=== PATIENT | male | born 1970 | race Two or more races ===

== ENCOUNTER 2017-12-07 23:06 | Inpatient (IN) | payer OTHER ==
[~2017-12-07] VITALS: Ht 177.8 cm; Wt 99.6 kg
[2017-12-07] MEDS ORDERED: VANCOMYCIN 1GM/250ML 250 ML IV ONE (23:45)
[2017-12-07] MEDS ORDERED: KETOROLAC TROMETH 30 MG/ML 1ML VIAL IV ONE (23:45)
[2017-12-07] MEDS ORDERED: HYDROmorphone HCL 2 MG/ML VL IV ONE (23:45)
[2017-12-07] MEDS ORDERED: ONDANSETRON HCL 4 MG/2 ML VIAL IV ONE (23:45)
[2017-12-08 00:37] LABS: Basophils # (auto) 0.1 uL; Basophils % (auto) 0.3 % (0.0-2.0); Eosinophils # (auto) 0.1 uL; Eosinophils % (auto) 0.5 % (0.0-7.0); Hematocrit 41.7 % (41.0-53.0); Hemoglobin 13.9 g/dL (13.5-17.5); Lymphocytes # (auto) 1.6 uL; Lymphocytes % (auto) 7.5 % (10.0-50.0); Mean Corpuscular Hemoglobin 29.8 pg (28.0-32.0); Mean Corpuscular Hgb Conc. 33.3 g/dL (32.0-36.0); Mean Corpuscular Volume 89.6 fL (80.0-100.0); Monocytes # (auto) 1.5 uL; Neutrophils # (auto) 17.9 uL; Neutrophils % (auto) 84.7 % (37.0-80.0); Platelet Count (auto) 275 10^3/uL (140-450); Red Blood Cells 4.65 10^6/uL (4.5-5.90); Red Cell Distribution Width 13.5 % (11.8-14.3); White Blood Cell 21.1 10^3/uL (4.4-10.8)
[2017-12-08 00:50] LABS: INR 0.96 (0.9-1.15); Partial Thromboplastin Time 32.2 sec (23.78-33.04); Prothrombin Time 10.3 sec (9.27-12.13)
[2017-12-08 00:51] LABS: Alanine Aminotransferase 102 U/L (16-61); Albumin 2.6 g/dL (3.4-5.0); Anion Gap 12 (5-15); Aspartate Aminotransferase 58 U/L (15-37); BUN/Creatinine Ratio 13.1; Blood Urea Nitrogen 18 mg/dL (7-18); Calcium 7.7 mg/dL (8.5-10.1); Carbon Dioxide 22 mmol/L (21-32); Chloride 98 mmol/L (98-107); GFR African American 72 mL/min; GFR Non-African American 60 mL/min; Glucose 215 mg/dL (74-106); Magnesium 1.6 mg/dL (1.6-2.6); Potassium 3.8 mmol/L (3.5-5.1); Sodium 132 mmol/L (136-145)
[2017-12-08 00:56] LABS: Alkaline Phosphatase 158 U/L (45-117); Bilirubin, Total 0.7 mg/dL (0.2-1.0); Total Protein 7.1 g/dL (6.4-8.2)
[2017-12-08] MEDS: SODIUM CHLORIDE 0.9% 1,000 ML IV ONE ×2 (01:15→01:52)
[2017-12-08] MEDS ORDERED: InsuLIN REG 1unit/0.01ml Soln (100units/ml) IV ONE (01:15)
[2017-12-08] MEDS ORDERED: VANCOMYCIN PER PHARMACY 0 MG IV SCH (03:30)
[2017-12-08] MEDS ORDERED: DEXTROSE (50%) 50ML SYRG IV PRN (03:30)
[2017-12-08] MEDS: PIPERACILLIN-TAZOB 3.375GM 100 ML IV SCH ×3 (06:49→20:14)
[2017-12-08] MEDS: ACCU-CHEK COMFORT CURVE STRIP VI SCH ×4 (06:49→22:26)
[2017-12-08] MEDS: InsuLIN REG 1unit/0.01ml Soln (100units/ml) SC SCH ×4 (07:45→22:45)
[2017-12-08] MEDS: MEPERIDINE HCL (25 MG/ML) 1ML VIAL IV PRN ×3 (08:55→20:14)
[2017-12-08] MEDS: VANCOMYCIN 1GM/250ML 250 ML IV SCH ×2 (10:00→18:21)
[2017-12-08] MEDS ORDERED: DOCUSATE SOD 100 MG CAP PO PRN (10:00)
[2017-12-08] MEDS: FAMOTIDINE 20 MG TAB PO SCH ×2 (10:00→22:45)
[2017-12-08] MEDS ORDERED: AMLO5TAB13 PO (17:55)
[2017-12-08] MEDS ORDERED: ASPI-123 PO (17:55)
[2017-12-08] MEDS ORDERED: DULO60CA PO (17:55)
[2017-12-08] MEDS ORDERED: IBUP800T24 PO (17:55)
[2017-12-08] MEDS ORDERED: INSU70IN3 SC (17:55)
[2017-12-08] MEDS ORDERED: ATOR40TA52 PO (17:55)
[2017-12-08] MEDS: HYDROcodone-ACET 5/325MG TAB PO PRN (18:10)
[2017-12-08 21:51] VITALS: BP 111/53
[2017-12-09] MEDS: PIPERACILLIN-TAZOB 3.375GM 100 ML IV SCH ×4 (01:18→19:30)
[2017-12-09] MEDS: VANCOMYCIN 1GM/250ML 250 ML IV SCH ×3 (02:27→18:01)
[2017-12-09 05:06] VITALS: BP 103/56
[2017-12-09] MEDS: ACCU-CHEK COMFORT CURVE STRIP VI SCH ×4 (06:47→22:00)
[2017-12-09] MEDS: InsuLIN REG 1unit/0.01ml Soln (100units/ml) SC SCH ×4 (06:57→22:00)
[2017-12-09] MEDS: MEPERIDINE HCL (25 MG/ML) 1ML VIAL IV PRN ×2 (06:58→11:22)
[2017-12-09] MEDS ORDERED: LISI10TA6 PO (07:24)
[2017-12-09] MEDS ORDERED: METF-371 PO (07:24)
[2017-12-09] MEDS ORDERED: TIMO0.5S38 EACHEYE (07:24)
[2017-12-09] MEDS ORDERED: LATA0.0015 EACHEYE (07:24)
[2017-12-09] MEDS ORDERED: CHOL20009 PO (07:24)
[2017-12-09] MEDS ORDERED: VITADTP TOP (07:24)
[2017-12-09] MEDS ORDERED: LEVO100T8 PO (07:24)
[2017-12-09] MEDS ORDERED: NORT25CA PO ×2 (07:24)
[2017-12-09 08:46] LABS: Basophils # (auto) 0.1 uL; Basophils % (auto) 0.3 % (0.0-2.0); Eosinophils # (auto) 0.2 uL; Eosinophils % (auto) 0.9 % (0.0-7.0); Hematocrit 40.6 % (41.0-53.0); Hemoglobin 13.5 g/dL (13.5-17.5); Lymphocytes # (auto) 1.7 uL; Lymphocytes % (auto) 9.2 % (10.0-50.0); Mean Corpuscular Hemoglobin 29.8 pg (28.0-32.0); Mean Corpuscular Hgb Conc. 33.3 g/dL (32.0-36.0); Mean Corpuscular Volume 89.3 fL (80.0-100.0); Monocytes # (auto) 1.5 uL; Neutrophils # (auto) 15.4 uL; Neutrophils % (auto) 81.6 % (37.0-80.0); Platelet Count (auto) 312 10^3/uL (140-450); Red Blood Cells 4.54 10^6/uL (4.5-5.90); Red Cell Distribution Width 13.6 % (11.8-14.3); White Blood Cell 18.8 10^3/uL (4.4-10.8)
[2017-12-09 09:00] VITALS: BP 133/69
[2017-12-09 09:04] LABS: Calcium 8.4 mg/dL (8.5-10.1); Potassium 3.7 mmol/L (3.5-5.1)
[2017-12-09 09:07] LABS: BUN/Creatinine Ratio 10.9
[2017-12-09] MEDS: FAMOTIDINE 20 MG TAB PO SCH ×2 (09:45→22:35)
[2017-12-09] MEDS: HYDROcodone-ACET 5/325MG TAB PO PRN ×2 (09:59→20:51)
[2017-12-09 12:30] VITALS: BP 147/82
[2017-12-09 17:11] VITALS: BP 139/85
[2017-12-09] MEDS: MEPERIDINE HCL (50 MG/ML) 1 ML VIAL IV PRN ×2 (20:23→23:53)
[2017-12-09 21:19] VITALS: BP 126/77
[2017-12-09] MEDS ORDERED: INSULIN NPH Isophane (HUMAN) 1unit/0.01ml Susp(100units/ml) SC ONE (22:45)
[2017-12-09] MEDS ORDERED: LIDOCAINE 1% (LOCAL ANESTH.) PF 5ml SDV ONE (22:59)
[2017-12-09] MEDS ORDERED: metroNIDAZOLE 500 MG TAB PO ONE (23:30)
[2017-12-09] MEDS ORDERED: LIDOCAINE 1% HCL (LOCAL ANESTH.) INJ 20ML MDV ID ONE (23:30)
[2017-12-09] MEDS: LATANOPROST 0.005 % OPTH(EYE) SOL 2.5ML EACHEYE SCH (23:45)
[2017-12-10] MEDS: PIPERACILLIN-TAZOB 3.375GM 100 ML IV SCH ×4 (01:23→20:59)
[2017-12-10] MEDS: VANCOMYCIN 1GM/250ML 250 ML IV SCH ×2 (02:42→14:00)
[2017-12-10] MEDS: MEPERIDINE HCL (50 MG/ML) 1 ML VIAL IV PRN ×5 (03:55→23:58)
[2017-12-10 05:44] VITALS: BP 120/65
[2017-12-10 06:34] LABS: Basophils # (auto) 0 uL; Basophils % (auto) 0.2 % (0.0-2.0); Eosinophils # (auto) 0.2 uL; Eosinophils % (auto) 0.8 % (0.0-7.0); Hematocrit 39.1 % (41.0-53.0); Hemoglobin 13.3 g/dL (13.5-17.5); Lymphocytes # (auto) 1.8 uL; Lymphocytes % (auto) 8.8 % (10.0-50.0); Mean Corpuscular Hemoglobin 30.2 pg (28.0-32.0); Mean Corpuscular Volume 88.8 fL (80.0-100.0); Monocytes # (auto) 2.1 uL; Monocytes % (auto) 9.7 % (0.0-12.0); Neutrophils % (auto) 80.5 % (37.0-80.0); Platelet Count (auto) 346 10^3/uL (140-450); Red Blood Cells 4.41 10^6/uL (4.5-5.90); Red Cell Distribution Width 13.7 % (11.8-14.3); White Blood Cell 21.1 10^3/uL (4.4-10.8)
[2017-12-10] MEDS: LEVOTHYROXINE SODIUM 100 MCG TAB PO SCH (06:50)
[2017-12-10] MEDS: metFORMIN HYDROCHLORIDE 850 MG TAB PO SCH ×2 (06:50→17:45)
[2017-12-10] MEDS: InsuLIN REG 1unit/0.01ml Soln (100units/ml) SC SCH ×4 (06:51→21:27)
[2017-12-10] MEDS: INSULIN NPH Isophane (HUMAN) 1unit/0.01ml Susp(100units/ml) SC SCH ×2 (06:52→17:46)
[2017-12-10] MEDS: ACCU-CHEK COMFORT CURVE STRIP VI SCH ×4 (06:52→21:26)
[2017-12-10 06:59] LABS: Albumin 2.3 g/dL (3.4-5.0); BUN/Creatinine Ratio 7.6; Bilirubin, Total 0.7 mg/dL (0.2-1.0); Calcium 8.5 mg/dL (8.5-10.1); Potassium 3.8 mmol/L (3.5-5.1); Total Protein 7.6 g/dL (6.4-8.2)
[2017-12-10 08:00] VITALS: BP 145/70
[2017-12-10] MEDS: SILVER SULFADIAZINE 1 % TOPICAL CREAM 50GM TOP SCH ×2 (10:00→22:00)
[2017-12-10] MEDS: DAKINS QUARTER STR 0.125% (NaHypochlorite) 473 ML TOPICAL SOL TOP SCH ×2 (10:00→21:08)
[2017-12-10] MEDS: TIMOLOL MALEATE 0.25 % OPTH SOL 5ML EACHEYE SCH ×3 (10:23→21:24)
[2017-12-10] MEDS: ZINC SULFATE 220mg CAP or TAB PO SCH (10:24)
[2017-12-10] MEDS: FAMOTIDINE 20 MG TAB PO SCH ×2 (10:24→21:08)
[2017-12-10] MEDS: ASCORBIC ACID 500 MG TAB PO SCH (10:24)
[2017-12-10 12:00] VITALS: BP 136/71
[2017-12-10 16:00] VITALS: BP 139/86
[2017-12-10] MEDS: LATANOPROST 0.005 % OPTH(EYE) SOL 2.5ML EACHEYE SCH ×2 (21:24→22:33)
[2017-12-10 22:00] VITALS: BP 134/73
[2017-12-11] MEDS: PIPERACILLIN-TAZOB 3.375GM 100 ML IV SCH ×4 (00:26→20:53)
[2017-12-11] MEDS: VANCOMYCIN 1GM/250ML 250 ML IV SCH ×2 (01:25→14:52)
[2017-12-11 05:00] VITALS: BP 131/76
[2017-12-11] MEDS: HYDROcodone-ACET 5/325MG TAB PO PRN ×2 (06:00→21:14)
[2017-12-11] MEDS: LEVOTHYROXINE SODIUM 100 MCG TAB PO SCH (06:01)
[2017-12-11] MEDS: InsuLIN REG 1unit/0.01ml Soln (100units/ml) SC SCH ×4 (06:25→21:18)
[2017-12-11] MEDS: ACCU-CHEK COMFORT CURVE STRIP VI SCH ×4 (06:25→21:08)
[2017-12-11] MEDS: metFORMIN HYDROCHLORIDE 850 MG TAB PO SCH ×2 (06:25→17:24)
[2017-12-11] MEDS: INSULIN NPH Isophane (HUMAN) 1unit/0.01ml Susp(100units/ml) SC SCH ×2 (06:26→17:25)
[2017-12-11 06:41] LABS: Hematocrit 39.7 % (41.0-53.0); Hemoglobin 13.4 g/dL (13.5-17.5); Mean Corpuscular Hemoglobin 30.5 pg (28.0-32.0); Mean Corpuscular Hgb Conc. 33.9 g/dL (32.0-36.0); Mean Corpuscular Volume 90.1 fL (80.0-100.0); Platelet Count (auto) 357 10^3/uL (140-450); Red Blood Cells 4.41 10^6/uL (4.5-5.90); Red Cell Distribution Width 13.4 % (11.8-14.3); White Blood Cell 18.8 10^3/uL (4.4-10.8)
[2017-12-11 06:57] LABS: Albumin 2.2 g/dL (3.4-5.0); BUN/Creatinine Ratio 6.3; Bilirubin, Total 0.6 mg/dL (0.2-1.0); Calcium 8.5 mg/dL (8.5-10.1); Potassium 3.6 mmol/L (3.5-5.1); Total Protein 7.8 g/dL (6.4-8.2)
[2017-12-11 07:09] LABS: Basophils % (manual) 0 (0.0-2.0); Blast Cells 0; Eosinophils % (manual) 0 (0-7); Metamyelocytes % 0; Myelocytes % 0; Promyelocytes % 0; Reactive Lymphocytes 0
[2017-12-11 08:00] VITALS: BP 132/86
[2017-12-11 08:42] LABS: Band Neutrophils % (manual) 2; Lymphocytes % (manual) 15 (10.0-50.0); Monocytes % (manual) 5 (0-12)
[2017-12-11] MEDS: TIMOLOL MALEATE 0.25 % OPTH SOL 5ML EACHEYE SCH ×2 (09:54→21:06)
[2017-12-11] MEDS: ZINC SULFATE 220mg CAP or TAB PO SCH (09:54)
[2017-12-11] MEDS: FAMOTIDINE 20 MG TAB PO SCH ×2 (09:54→21:06)
[2017-12-11] MEDS: ASCORBIC ACID 500 MG TAB PO SCH (09:54)
[2017-12-11] MEDS: DAKINS QUARTER STR 0.125% (NaHypochlorite) 473 ML TOPICAL SOL TOP SCH ×2 (10:00→21:08)
[2017-12-11] MEDS: SILVER SULFADIAZINE 1 % TOPICAL CREAM 50GM TOP SCH ×2 (10:00→21:08)
[2017-12-11] MEDS: MEPERIDINE HCL (50 MG/ML) 1 ML VIAL IV PRN ×2 (10:19→15:50)
[2017-12-11 12:00] VITALS: BP 118/68
[2017-12-11 16:00] VITALS: BP 109/61
[2017-12-11] MEDS ORDERED: ACETAMINOPHEN 325 MG TAB PO PRN ×2 (16:15→16:30)
[2017-12-11] MEDS: LATANOPROST 0.005 % OPTH(EYE) SOL 2.5ML EACHEYE SCH (21:05)
[2017-12-11 22:00] VITALS: BP 119/56
[2017-12-12] MEDS: PIPERACILLIN-TAZOB 3.375GM 100 ML IV SCH ×4 (00:14→12:45)
[2017-12-12] MEDS: VANCOMYCIN 1GM/250ML 250 ML IV SCH ×2 (01:29→14:18)
[2017-12-12 05:00] VITALS: BP 122/66
[2017-12-12] MEDS: LEVOTHYROXINE SODIUM 100 MCG TAB PO SCH (05:58)
[2017-12-12] MEDS: MEPERIDINE HCL (50 MG/ML) 1 ML VIAL IV PRN ×3 (06:16→17:44)
[2017-12-12] MEDS: ACCU-CHEK COMFORT CURVE STRIP VI SCH ×4 (06:17→21:18)
[2017-12-12] MEDS: InsuLIN REG 1unit/0.01ml Soln (100units/ml) SC SCH ×4 (06:39→21:18)
[2017-12-12] MEDS: metFORMIN HYDROCHLORIDE 850 MG TAB PO SCH ×2 (06:39→16:52)
[2017-12-12] MEDS: INSULIN NPH Isophane (HUMAN) 1unit/0.01ml Susp(100units/ml) SC SCH ×2 (06:40→17:02)
[2017-12-12 08:00] VITALS: BP 127/92
[2017-12-12 09:00] VITALS: BP 127/71
[2017-12-12] MEDS: ZINC SULFATE 220mg CAP or TAB PO SCH (10:11)
[2017-12-12] MEDS: TIMOLOL MALEATE 0.25 % OPTH SOL 5ML EACHEYE SCH ×2 (10:11→21:08)
[2017-12-12] MEDS: SILVER SULFADIAZINE 1 % TOPICAL CREAM 50GM TOP SCH ×2 (10:12→21:09)
[2017-12-12] MEDS: FAMOTIDINE 20 MG TAB PO SCH ×2 (10:12→21:08)
[2017-12-12] MEDS: ASCORBIC ACID 500 MG TAB PO SCH (10:12)
[2017-12-12] MEDS: DAKINS QUARTER STR 0.125% (NaHypochlorite) 473 ML TOPICAL SOL TOP SCH ×2 (10:13→21:08)
[2017-12-12 13:00] VITALS: BP 133/71
[2017-12-12] MEDS: ONDANSETRON HCL 4 MG/2 ML VIAL IV PRN (14:18)
[2017-12-12 16:58] VITALS: BP 136/76
[2017-12-12] MEDS: LATANOPROST 0.005 % OPTH(EYE) SOL 2.5ML EACHEYE SCH (21:08)
[2017-12-12 22:00] VITALS: BP 115/62
[2017-12-13] MEDS: VANCOMYCIN 1GM/250ML 250 ML IV SCH ×2 (01:54→14:35)
[2017-12-13 05:00] VITALS: BP 125/62
[2017-12-13] MEDS: LEVOTHYROXINE SODIUM 100 MCG TAB PO SCH (06:02)
[2017-12-13] MEDS: metFORMIN HYDROCHLORIDE 850 MG TAB PO SCH ×2 (06:03→18:10)
[2017-12-13] MEDS: InsuLIN REG 1unit/0.01ml Soln (100units/ml) SC SCH ×4 (06:03→21:20)
[2017-12-13] MEDS: ACCU-CHEK COMFORT CURVE STRIP VI SCH ×4 (06:04→21:21)
[2017-12-13] MEDS: INSULIN NPH Isophane (HUMAN) 1unit/0.01ml Susp(100units/ml) SC SCH ×2 (06:04→18:11)
[2017-12-13 08:00] VITALS: BP 123/56
[2017-12-13 08:30] VITALS: BP 123/56
[2017-12-13] MEDS: MEPERIDINE HCL (50 MG/ML) 1 ML VIAL IV PRN ×3 (08:40→21:01)
[2017-12-13] MEDS: DAKINS QUARTER STR 0.125% (NaHypochlorite) 473 ML TOPICAL SOL TOP SCH ×2 (10:00→21:21)
[2017-12-13] MEDS: ZINC SULFATE 220mg CAP or TAB PO SCH (10:33)
[2017-12-13] MEDS: TIMOLOL MALEATE 0.25 % OPTH SOL 5ML EACHEYE SCH ×2 (10:33→21:01)
[2017-12-13] MEDS: ASCORBIC ACID 500 MG TAB PO SCH (10:34)
[2017-12-13] MEDS: SILVER SULFADIAZINE 1 % TOPICAL CREAM 50GM TOP SCH ×2 (10:34→21:21)
[2017-12-13] MEDS: FAMOTIDINE 20 MG TAB PO SCH ×2 (11:43→21:01)
[2017-12-13] MEDS: HYDROcodone-ACET 5/325MG TAB PO PRN (12:00)
[2017-12-13 12:50] VITALS: BP 136/80
[2017-12-13 16:43] VITALS: BP 124/66
[2017-12-13] MEDS: LATANOPROST 0.005 % OPTH(EYE) SOL 2.5ML EACHEYE SCH (21:01)
[2017-12-13 22:00] VITALS: BP 134/71
[2017-12-14] MEDS: VANCOMYCIN 1GM/250ML 250 ML IV SCH ×2 (01:54→14:00)
[2017-12-14 05:41] VITALS: BP 132/69
[2017-12-14] MEDS: LEVOTHYROXINE SODIUM 100 MCG TAB PO SCH (06:07)
[2017-12-14] MEDS: InsuLIN REG 1unit/0.01ml Soln (100units/ml) SC SCH ×4 (06:08→21:46)
[2017-12-14] MEDS: metFORMIN HYDROCHLORIDE 850 MG TAB PO SCH ×2 (06:08→17:52)
[2017-12-14] MEDS: ACCU-CHEK COMFORT CURVE STRIP VI SCH ×4 (06:09→21:46)
[2017-12-14] MEDS: INSULIN NPH Isophane (HUMAN) 1unit/0.01ml Susp(100units/ml) SC SCH ×2 (06:09→17:53)
[2017-12-14 07:28] LABS: Hematocrit 40.5 % (41.0-53.0); Hemoglobin 13.5 g/dL (13.5-17.5); Mean Corpuscular Hgb Conc. 33.4 g/dL (32.0-36.0); Mean Corpuscular Volume 89.9 fL (80.0-100.0); Platelet Count (auto) 441 10^3/uL (140-450); White Blood Cell 18.1 10^3/uL (4.4-10.8)
[2017-12-14 07:39] LABS: Basophils % (manual) 0 (0.0-2.0); Blast Cells 0; Metamyelocytes % 0; Myelocytes % 0; Promyelocytes % 0; Reactive Lymphocytes 0
[2017-12-14 07:53] LABS: Albumin 2.2 g/dL (3.4-5.0); BUN/Creatinine Ratio 8.4; Bilirubin, Total 0.3 mg/dL (0.2-1.0); Calcium 8.3 mg/dL (8.5-10.1); Potassium 3.8 mmol/L (3.5-5.1); Total Protein 8.1 g/dL (6.4-8.2)
[2017-12-14 08:00] VITALS: BP 138/63
[2017-12-14 08:07] LABS: Band Neutrophils % (manual) 1; Eosinophils % (manual) 4 (0-7); Lymphocytes % (manual) 18 (10.0-50.0); Monocytes % (manual) 3 (0-12)
[2017-12-14] MEDS: MEPERIDINE HCL (50 MG/ML) 1 ML VIAL IV PRN ×2 (08:11→13:28)
[2017-12-14 08:30] VITALS: BP 138/63
[2017-12-14] MEDS: DAKINS QUARTER STR 0.125% (NaHypochlorite) 473 ML TOPICAL SOL TOP SCH ×2 (10:00→21:13)
[2017-12-14] MEDS: FAMOTIDINE 20 MG TAB PO SCH ×2 (10:44→21:13)
[2017-12-14] MEDS: TIMOLOL MALEATE 0.25 % OPTH SOL 5ML EACHEYE SCH ×2 (10:44→21:12)
[2017-12-14] MEDS: ZINC SULFATE 220mg CAP or TAB PO SCH (10:44)
[2017-12-14] MEDS: SILVER SULFADIAZINE 1 % TOPICAL CREAM 50GM TOP SCH ×2 (10:45→21:13)
[2017-12-14] MEDS: ASCORBIC ACID 500 MG TAB PO SCH (10:45)
[2017-12-14 12:30] VITALS: BP 130/68
[2017-12-14 17:32] VITALS: BP 161/87
[2017-12-14] MEDS: LATANOPROST 0.005 % OPTH(EYE) SOL 2.5ML EACHEYE SCH (21:12)
[2017-12-14 22:00] VITALS: BP 131/70
[2017-12-15] MEDS: VANCOMYCIN 1GM/250ML 250 ML IV SCH ×2 (01:53→15:16)
[2017-12-15 05:07] VITALS: BP 133/72
[2017-12-15] MEDS: LEVOTHYROXINE SODIUM 100 MCG TAB PO SCH (06:05)
[2017-12-15] MEDS: metFORMIN HYDROCHLORIDE 850 MG TAB PO SCH ×2 (06:05→17:09)
[2017-12-15] MEDS: InsuLIN REG 1unit/0.01ml Soln (100units/ml) SC SCH ×4 (06:05→22:00)
[2017-12-15] MEDS: INSULIN NPH Isophane (HUMAN) 1unit/0.01ml Susp(100units/ml) SC SCH ×2 (06:06→17:09)
[2017-12-15] MEDS: ACCU-CHEK COMFORT CURVE STRIP VI SCH ×4 (06:06→22:06)
[2017-12-15 08:00] VITALS: BP 135/72
[2017-12-15 09:31] VITALS: BP 135/72
[2017-12-15] MEDS: ASCORBIC ACID 500 MG TAB PO SCH (10:12)
[2017-12-15] MEDS: FAMOTIDINE 20 MG TAB PO SCH ×2 (10:12→22:05)
[2017-12-15] MEDS: ZINC SULFATE 220mg CAP or TAB PO SCH (10:12)
[2017-12-15] MEDS: SILVER SULFADIAZINE 1 % TOPICAL CREAM 50GM TOP SCH ×2 (10:12→22:06)
[2017-12-15] MEDS: TIMOLOL MALEATE 0.25 % OPTH SOL 5ML EACHEYE SCH ×2 (10:12→22:05)
[2017-12-15] MEDS: DAKINS QUARTER STR 0.125% (NaHypochlorite) 473 ML TOPICAL SOL TOP SCH ×2 (10:13→22:05)
[2017-12-15] MEDS: MEPERIDINE HCL (50 MG/ML) 1 ML VIAL IV PRN ×3 (10:32→21:09)
[2017-12-15] MEDS: HYDROcodone-ACET 5/325MG TAB PO PRN (12:11)
[2017-12-15 14:06] VITALS: BP 126/72
[2017-12-15 18:15] VITALS: BP 134/81
[2017-12-15 22:00] VITALS: BP 140/76
[2017-12-15] MEDS: LATANOPROST 0.005 % OPTH(EYE) SOL 2.5ML EACHEYE SCH (22:00)
[2017-12-16] MEDS: VANCOMYCIN 1GM/250ML 250 ML IV SCH ×2 (02:03→15:28)
[2017-12-16 05:00] VITALS: BP 132/80
[2017-12-16] MEDS: LEVOTHYROXINE SODIUM 100 MCG TAB PO SCH (06:26)
[2017-12-16] MEDS: metFORMIN HYDROCHLORIDE 850 MG TAB PO SCH ×2 (06:26→18:39)
[2017-12-16] MEDS: ACCU-CHEK COMFORT CURVE STRIP VI SCH ×4 (06:26→21:21)
[2017-12-16] MEDS: INSULIN NPH Isophane (HUMAN) 1unit/0.01ml Susp(100units/ml) SC SCH ×2 (06:27→18:39)
[2017-12-16] MEDS: InsuLIN REG 1unit/0.01ml Soln (100units/ml) SC SCH ×4 (06:27→21:21)
[2017-12-16] MEDS: MEPERIDINE HCL (50 MG/ML) 1 ML VIAL IV PRN ×5 (06:27→23:23)
[2017-12-16 08:31] LABS: Basophils # (auto) 0.1 uL; Basophils % (auto) 0.3 % (0.0-2.0); Lymphocytes # (auto) 2.7 uL
[2017-12-16 08:32] LABS: Eosinophils # (auto) 0.3 uL; Eosinophils % (auto) 2.1 % (0.0-7.0); Hemoglobin 13.5 g/dL (13.5-17.5); Lymphocytes % (auto) 16.6 % (10.0-50.0); Mean Corpuscular Hemoglobin 30.2 pg (28.0-32.0); Mean Corpuscular Hgb Conc. 33.7 g/dL (32.0-36.0); Mean Corpuscular Volume 89.8 fL (80.0-100.0); Monocytes % (auto) 6.2 % (0.0-12.0); Neutrophils # (auto) 12.3 uL; Neutrophils % (auto) 74.8 % (37.0-80.0); Platelet Count (auto) 454 10^3/uL (140-450); Red Blood Cells 4.45 10^6/uL (4.5-5.90); Red Cell Distribution Width 13.7 % (11.8-14.3); White Blood Cell 16.5 10^3/uL (4.4-10.8)
[2017-12-16 09:00] VITALS: BP 142/87
[2017-12-16] MEDS: ZINC SULFATE 220mg CAP or TAB PO SCH (10:52)
[2017-12-16] MEDS: ASCORBIC ACID 500 MG TAB PO SCH (10:52)
[2017-12-16] MEDS: TIMOLOL MALEATE 0.25 % OPTH SOL 5ML EACHEYE SCH ×2 (10:52→21:22)
[2017-12-16] MEDS: FAMOTIDINE 20 MG TAB PO SCH ×2 (10:52→21:20)
[2017-12-16] MEDS: DAKINS QUARTER STR 0.125% (NaHypochlorite) 473 ML TOPICAL SOL TOP SCH ×2 (10:53→21:21)
[2017-12-16] MEDS: SILVER SULFADIAZINE 1 % TOPICAL CREAM 50GM TOP SCH ×2 (10:53→21:21)
[2017-12-16 13:00] VITALS: BP 149/82
[2017-12-16 17:00] VITALS: BP 110/59
[2017-12-16] MEDS: LATANOPROST 0.005 % OPTH(EYE) SOL 2.5ML EACHEYE SCH (21:22)
[2017-12-16 22:00] VITALS: BP 138/77
[2017-12-17] MEDS: VANCOMYCIN 1GM/250ML 250 ML IV SCH ×2 (02:09→18:34)
[2017-12-17 05:00] VITALS: BP 133/78
[2017-12-17] MEDS: LEVOTHYROXINE SODIUM 100 MCG TAB PO SCH (06:13)
[2017-12-17] MEDS: MEPERIDINE HCL (50 MG/ML) 1 ML VIAL IV PRN ×6 (06:13→23:25)
[2017-12-17 06:29] LABS: BUN/Creatinine Ratio 11.5; Calcium 8.4 mg/dL (8.5-10.1)
[2017-12-17] MEDS: metFORMIN HYDROCHLORIDE 850 MG TAB PO SCH ×2 (06:40→18:35)
[2017-12-17] MEDS: InsuLIN REG 1unit/0.01ml Soln (100units/ml) SC SCH ×4 (06:40→22:00)
[2017-12-17] MEDS: INSULIN NPH Isophane (HUMAN) 1unit/0.01ml Susp(100units/ml) SC SCH ×2 (06:40→18:35)
[2017-12-17] MEDS: ACCU-CHEK COMFORT CURVE STRIP VI SCH ×4 (06:40→22:00)
[2017-12-17 07:53] VITALS: BP 153/81
[2017-12-17] MEDS: FAMOTIDINE 20 MG TAB PO SCH ×2 (10:00→22:47)
[2017-12-17] MEDS: TIMOLOL MALEATE 0.25 % OPTH SOL 5ML EACHEYE SCH ×2 (10:14→22:00)
[2017-12-17] MEDS: ASCORBIC ACID 500 MG TAB PO SCH (10:14)
[2017-12-17] MEDS: ZINC SULFATE 220mg CAP or TAB PO SCH (10:14)
[2017-12-17] MEDS: DAKINS QUARTER STR 0.125% (NaHypochlorite) 473 ML TOPICAL SOL TOP SCH (10:15)
[2017-12-17] MEDS: SILVER SULFADIAZINE 1 % TOPICAL CREAM 50GM TOP SCH ×2 (10:15→22:00)
[2017-12-17 12:01] VITALS: BP 147/88
[2017-12-17 17:25] VITALS: BP 161/90
[2017-12-17 22:00] VITALS: BP 152/78
[2017-12-17] MEDS: LATANOPROST 0.005 % OPTH(EYE) SOL 2.5ML EACHEYE SCH (22:00)
[2017-12-17] MEDS: HYDROcodone-ACET 5/325MG TAB PO PRN (22:42)
[2017-12-18] MEDS: MEPERIDINE HCL (50 MG/ML) 1 ML VIAL IV PRN ×5 (03:26→21:01)
[2017-12-18 05:45] VITALS: BP 133/74
[2017-12-18] MEDS: metFORMIN HYDROCHLORIDE 850 MG TAB PO SCH ×2 (06:37→18:21)
[2017-12-18] MEDS: LEVOTHYROXINE SODIUM 100 MCG TAB PO SCH (06:37)
[2017-12-18] MEDS: InsuLIN REG 1unit/0.01ml Soln (100units/ml) SC SCH ×4 (06:39→22:01)
[2017-12-18] MEDS: ACCU-CHEK COMFORT CURVE STRIP VI SCH ×4 (06:39→21:11)
[2017-12-18] MEDS: INSULIN NPH Isophane (HUMAN) 1unit/0.01ml Susp(100units/ml) SC SCH ×2 (06:40→18:00)
[2017-12-18 08:51] VITALS: BP 131/81
[2017-12-18 10:02] LABS: Hemoglobin 13.7 g/dL (13.5-17.5)
[2017-12-18 10:03] LABS: Hematocrit 41.7 % (41.0-53.0); Mean Corpuscular Hemoglobin 29.7 pg (28.0-32.0); Mean Corpuscular Hgb Conc. 32.9 g/dL (32.0-36.0); Mean Corpuscular Volume 90.1 fL (80.0-100.0); Platelet Count (auto) 477 10^3/uL (140-450); Red Blood Cells 4.63 10^6/uL (4.5-5.90); Red Cell Distribution Width 13.8 % (11.8-14.3); White Blood Cell 14.1 10^3/uL (4.4-10.8)
[2017-12-18 10:07] LABS: Basophils % (manual) 0 (0.0-2.0); Blast Cells 0; Eosinophils % (manual) 0 (0-7); Metamyelocytes % 0; Myelocytes % 0; Promyelocytes % 0; Reactive Lymphocytes 0
[2017-12-18 10:32] LABS: Band Neutrophils % (manual) 2; Lymphocytes % (manual) 28 (10.0-50.0); Monocytes % (manual) 7 (0-12)
[2017-12-18 10:35] LABS: Anion Gap 8 (5-15); Carbon Dioxide 26 mmol/L (21-32); Chloride 102 mmol/L (98-107); Glucose 169 mg/dL (74-106); Potassium 4.1 mmol/L (3.5-5.1); Sodium 136 mmol/L (136-145)
[2017-12-18 10:36] LABS: BUN/Creatinine Ratio 12.6; Blood Urea Nitrogen 16 mg/dL (7-18); GFR African American 79 mL/min; GFR Non-African American 65 mL/min
[2017-12-18 10:37] LABS: Alanine Aminotransferase 42 U/L (16-61); Albumin 2.5 g/dL (3.4-5.0); Alkaline Phosphatase 139 U/L (45-117); Aspartate Aminotransferase 33 U/L (15-37); Bilirubin, Total 0.2 mg/dL (0.2-1.0); Calcium 8.4 mg/dL (8.5-10.1); Total Protein 8.4 g/dL (6.4-8.2)
[2017-12-18] MEDS: SILVER SULFADIAZINE 1 % TOPICAL CREAM 50GM TOP SCH ×2 (11:04→22:04)
[2017-12-18] MEDS: ZINC SULFATE 220mg CAP or TAB PO SCH (11:04)
[2017-12-18] MEDS: ASCORBIC ACID 500 MG TAB PO SCH (11:04)
[2017-12-18] MEDS: FAMOTIDINE 20 MG TAB PO SCH ×2 (11:04→21:05)
[2017-12-18] MEDS: VANCOMYCIN 1GM/250ML 250 ML IV SCH (11:04)
[2017-12-18] MEDS: TIMOLOL MALEATE 0.25 % OPTH SOL 5ML EACHEYE SCH ×2 (11:04→21:05)
[2017-12-18 13:00] VITALS: BP 126/72
[2017-12-18 17:00] VITALS: BP 133/81
[2017-12-18 22:00] VITALS: BP 152/84
[2017-12-18] MEDS: LATANOPROST 0.005 % OPTH(EYE) SOL 2.5ML EACHEYE SCH (22:00)
[2017-12-18] MEDS: DAKINS QUARTER STR 0.125% (NaHypochlorite) 473 ML TOPICAL SOL TOP SCH (23:04)
[2017-12-19] MEDS: MEPERIDINE HCL (50 MG/ML) 1 ML VIAL IV PRN ×4 (00:17→22:00)
[2017-12-19] MEDS: VANCOMYCIN 1GM/250ML 250 ML IV SCH ×2 (01:56→18:41)
[2017-12-19 05:00] VITALS: BP 123/73
[2017-12-19] MEDS: LEVOTHYROXINE SODIUM 100 MCG TAB PO SCH (06:07)
[2017-12-19] MEDS: ACCU-CHEK COMFORT CURVE STRIP VI SCH ×4 (06:24→21:58)
[2017-12-19] MEDS: InsuLIN REG 1unit/0.01ml Soln (100units/ml) SC SCH ×4 (06:25→21:58)
[2017-12-19] MEDS: INSULIN NPH Isophane (HUMAN) 1unit/0.01ml Susp(100units/ml) SC SCH ×2 (06:25→18:41)
[2017-12-19] MEDS: metFORMIN HYDROCHLORIDE 850 MG TAB PO SCH ×2 (06:25→18:41)
[2017-12-19 08:30] VITALS: BP 136/80
[2017-12-19] MEDS: ONDANSETRON HCL 4 MG/2 ML VIAL IV PRN (09:30)
[2017-12-19] MEDS: TIMOLOL MALEATE 0.25 % OPTH SOL 5ML EACHEYE SCH ×2 (10:28→21:36)
[2017-12-19] MEDS: SILVER SULFADIAZINE 1 % TOPICAL CREAM 50GM TOP SCH ×2 (10:29→22:00)
[2017-12-19] MEDS: ZINC SULFATE 220mg CAP or TAB PO SCH (10:29)
[2017-12-19] MEDS: ASCORBIC ACID 500 MG TAB PO SCH (10:29)
[2017-12-19] MEDS: DAKINS QUARTER STR 0.125% (NaHypochlorite) 473 ML TOPICAL SOL TOP SCH ×2 (10:29→22:00)
[2017-12-19] MEDS: FAMOTIDINE 20 MG TAB PO SCH ×2 (10:29→21:36)
[2017-12-19 13:04] VITALS: BP 142/83
[2017-12-19 16:52] VITALS: BP 135/77
[2017-12-19] MEDS: LATANOPROST 0.005 % OPTH(EYE) SOL 2.5ML EACHEYE SCH (21:36)
[2017-12-19 22:28] VITALS: BP 127/80
[2017-12-20 05:48] VITALS: BP 134/68
[2017-12-20] MEDS: LEVOTHYROXINE SODIUM 100 MCG TAB PO SCH (06:06)
[2017-12-20] MEDS: InsuLIN REG 1unit/0.01ml Soln (100units/ml) SC SCH ×4 (06:12→22:15)
[2017-12-20] MEDS: ACCU-CHEK COMFORT CURVE STRIP VI SCH ×4 (06:13→22:00)
[2017-12-20] MEDS: MEPERIDINE HCL (50 MG/ML) 1 ML VIAL IV PRN ×3 (06:16→16:14)
[2017-12-20] MEDS: INSULIN NPH Isophane (HUMAN) 1unit/0.01ml Susp(100units/ml) SC SCH ×2 (06:16→18:31)
[2017-12-20] MEDS: metFORMIN HYDROCHLORIDE 850 MG TAB PO SCH ×2 (07:00→18:30)
[2017-12-20] MEDS: VANCOMYCIN 1GM/250ML 250 ML IV SCH ×2 (08:29→21:59)
[2017-12-20 09:00] VITALS: BP 165/90
[2017-12-20] MEDS: ASCORBIC ACID 500 MG TAB PO SCH (11:45)
[2017-12-20] MEDS: TIMOLOL MALEATE 0.25 % OPTH SOL 5ML EACHEYE SCH ×2 (11:45→22:00)
[2017-12-20] MEDS: ZINC SULFATE 220mg CAP or TAB PO SCH (11:45)
[2017-12-20] MEDS: FAMOTIDINE 20 MG TAB PO SCH ×2 (11:45→21:59)
[2017-12-20] MEDS: SILVER SULFADIAZINE 1 % TOPICAL CREAM 50GM TOP SCH ×2 (11:46→21:59)
[2017-12-20] MEDS: DAKINS QUARTER STR 0.125% (NaHypochlorite) 473 ML TOPICAL SOL TOP SCH ×2 (11:46→22:00)
[2017-12-20 13:00] VITALS: BP 137/76
[2017-12-20 17:00] VITALS: BP 141/80
[2017-12-20] MEDS: HYDROcodone-ACET 10/325MG TAB PO PRN ×2 (19:49→23:49)
[2017-12-20 21:43] VITALS: BP 159/88
[2017-12-20] MEDS: LATANOPROST 0.005 % OPTH(EYE) SOL 2.5ML EACHEYE SCH (21:59)
[2017-12-21 04:51] VITALS: BP 144/82
[2017-12-21] MEDS: HYDROcodone-ACET 10/325MG TAB PO PRN ×5 (06:34→22:42)
[2017-12-21] MEDS: LEVOTHYROXINE SODIUM 100 MCG TAB PO SCH (06:34)
[2017-12-21] MEDS: InsuLIN REG 1unit/0.01ml Soln (100units/ml) SC SCH ×4 (06:40→22:39)
[2017-12-21] MEDS: ACCU-CHEK COMFORT CURVE STRIP VI SCH ×4 (06:40→22:40)
[2017-12-21] MEDS: INSULIN NPH Isophane (HUMAN) 1unit/0.01ml Susp(100units/ml) SC SCH ×2 (06:44→17:47)
[2017-12-21 08:00] VITALS: BP 131/79
[2017-12-21] MEDS: metFORMIN HYDROCHLORIDE 850 MG TAB PO SCH ×2 (08:37→17:47)
[2017-12-21 09:39] VITALS: BP 131/79
[2017-12-21] MEDS: ZINC SULFATE 220mg CAP or TAB PO SCH (10:28)
[2017-12-21] MEDS: TIMOLOL MALEATE 0.25 % OPTH SOL 5ML EACHEYE SCH ×2 (10:28→22:38)
[2017-12-21] MEDS: SILVER SULFADIAZINE 1 % TOPICAL CREAM 50GM TOP SCH ×2 (10:29→22:40)
[2017-12-21] MEDS: ASCORBIC ACID 500 MG TAB PO SCH (10:29)
[2017-12-21] MEDS: FAMOTIDINE 20 MG TAB PO SCH ×2 (10:29→22:39)
[2017-12-21] MEDS: DAKINS QUARTER STR 0.125% (NaHypochlorite) 473 ML TOPICAL SOL TOP SCH ×2 (10:29→22:40)
[2017-12-21 11:03] LABS: Basophils # (auto) 0.1 uL; Eosinophils # (auto) 0.2 uL; Hemoglobin 13.8 g/dL (13.5-17.5); Neutrophils # (auto) 6.9 uL; Neutrophils % (auto) 65.7 % (37.0-80.0)
[2017-12-21 11:05] LABS: Basophils % (auto) 1.1 % (0.0-2.0); Eosinophils % (auto) 2.1 % (0.0-7.0); Hematocrit 41.8 % (41.0-53.0); Lymphocytes # (auto) 2.6 uL; Lymphocytes % (auto) 24.5 % (10.0-50.0); Mean Corpuscular Hemoglobin 29.7 pg (28.0-32.0); Mean Corpuscular Volume 89.9 fL (80.0-100.0); Monocytes # (auto) 0.7 uL; Monocytes % (auto) 6.6 % (0.0-12.0); Nucleated Red Blood Cells % 0.1 %; Platelet Count (auto) 568 10^3/uL (140-450); Red Blood Cells 4.65 10^6/uL (4.5-5.90); Red Cell Distribution Width 14.3 % (11.8-14.3); White Blood Cell 10.5 10^3/uL (4.4-10.8)
[2017-12-21 11:22] LABS: BUN/Creatinine Ratio 12.5; Calcium 8.4 mg/dL (8.5-10.1); Potassium 4.2 mmol/L (3.5-5.1)
[2017-12-21] MEDS: VANCOMYCIN 1GM/250ML 250 ML IV SCH (12:04)
[2017-12-21 13:20] VITALS: BP 155/95
[2017-12-21 17:24] VITALS: BP 151/83
[2017-12-21 22:02] VITALS: BP 153/85
[2017-12-21] MEDS: LATANOPROST 0.005 % OPTH(EYE) SOL 2.5ML EACHEYE SCH (22:39)
[2017-12-22] MEDS: VANCOMYCIN 1GM/250ML 250 ML IV SCH ×2 (02:45→16:41)
[2017-12-22 05:01] VITALS: BP 162/97
[2017-12-22] MEDS: LEVOTHYROXINE SODIUM 100 MCG TAB PO SCH (06:36)
[2017-12-22] MEDS: InsuLIN REG 1unit/0.01ml Soln (100units/ml) SC SCH ×4 (06:37→23:15)
[2017-12-22] MEDS: metFORMIN HYDROCHLORIDE 850 MG TAB PO SCH ×2 (06:37→17:37)
[2017-12-22] MEDS: INSULIN NPH Isophane (HUMAN) 1unit/0.01ml Susp(100units/ml) SC SCH ×2 (06:39→17:38)
[2017-12-22] MEDS: ACCU-CHEK COMFORT CURVE STRIP VI SCH ×4 (06:39→23:15)
[2017-12-22] MEDS: HYDROcodone-ACET 10/325MG TAB PO PRN ×3 (06:40→17:36)
[2017-12-22 08:00] VITALS: BP 151/78
[2017-12-22 09:20] VITALS: BP 151/78
[2017-12-22] MEDS: SILVER SULFADIAZINE 1 % TOPICAL CREAM 50GM TOP SCH ×2 (10:00→23:15)
[2017-12-22] MEDS: TIMOLOL MALEATE 0.25 % OPTH SOL 5ML EACHEYE SCH ×2 (10:00→23:15)
[2017-12-22] MEDS: DAKINS QUARTER STR 0.125% (NaHypochlorite) 473 ML TOPICAL SOL TOP SCH ×2 (10:00→23:15)
[2017-12-22] MEDS: ZINC SULFATE 220mg CAP or TAB PO SCH (11:17)
[2017-12-22] MEDS: FAMOTIDINE 20 MG TAB PO SCH ×2 (11:17→23:14)
[2017-12-22] MEDS: ASCORBIC ACID 500 MG TAB PO SCH (11:17)
[2017-12-22 13:00] VITALS: BP 143/80
[2017-12-22 17:09] VITALS: BP 146/83
[2017-12-22 22:00] VITALS: BP 155/93
[2017-12-22] MEDS: LATANOPROST 0.005 % OPTH(EYE) SOL 2.5ML EACHEYE SCH (23:14)
[2017-12-23] MEDS: HYDROcodone-ACET 10/325MG TAB PO PRN ×3 (00:47→11:45)
[2017-12-23 05:00] VITALS: BP 138/89
[2017-12-23] MEDS: VANCOMYCIN 1GM/250ML 250 ML IV SCH ×2 (06:45→20:24)
[2017-12-23] MEDS: LEVOTHYROXINE SODIUM 100 MCG TAB PO SCH (06:45)
[2017-12-23] MEDS: metFORMIN HYDROCHLORIDE 850 MG TAB PO SCH ×2 (06:46→18:00)
[2017-12-23] MEDS: InsuLIN REG 1unit/0.01ml Soln (100units/ml) SC SCH ×4 (06:46→22:43)
[2017-12-23] MEDS: ACCU-CHEK COMFORT CURVE STRIP VI SCH ×4 (06:46→22:00)
[2017-12-23] MEDS: INSULIN NPH Isophane (HUMAN) 1unit/0.01ml Susp(100units/ml) SC SCH ×2 (06:46→18:00)
[2017-12-23 08:30] VITALS: BP 154/82
[2017-12-23] MEDS: SILVER SULFADIAZINE 1 % TOPICAL CREAM 50GM TOP SCH ×2 (10:00→22:43)
[2017-12-23] MEDS: DAKINS QUARTER STR 0.125% (NaHypochlorite) 473 ML TOPICAL SOL TOP SCH ×2 (10:00→22:44)
[2017-12-23] MEDS: ZINC SULFATE 220mg CAP or TAB PO SCH (10:24)
[2017-12-23] MEDS: ASCORBIC ACID 500 MG TAB PO SCH (10:24)
[2017-12-23] MEDS: FAMOTIDINE 20 MG TAB PO SCH ×2 (10:24→22:42)
[2017-12-23] MEDS: TIMOLOL MALEATE 0.25 % OPTH SOL 5ML EACHEYE SCH ×2 (10:26→22:44)
[2017-12-23 12:30] VITALS: BP 163/89
[2017-12-23] MEDS ORDERED: LISINOPRIL 5 MG TAB PO ONE (15:15)
[2017-12-23 16:14] VITALS: BP 134/77
[2017-12-23 21:39] VITALS: BP 127/72
[2017-12-23] MEDS: LATANOPROST 0.005 % OPTH(EYE) SOL 2.5ML EACHEYE SCH (22:42)
[2017-12-24 05:12] VITALS: BP 143/76
[2017-12-24] MEDS: metFORMIN HYDROCHLORIDE 850 MG TAB PO SCH ×2 (06:36→17:53)
[2017-12-24] MEDS: LEVOTHYROXINE SODIUM 100 MCG TAB PO SCH (06:36)
[2017-12-24] MEDS: INSULIN NPH Isophane (HUMAN) 1unit/0.01ml Susp(100units/ml) SC SCH ×2 (06:37→18:00)
[2017-12-24] MEDS: HYDROcodone-ACET 10/325MG TAB PO PRN ×3 (06:37→22:06)
[2017-12-24] MEDS: ACCU-CHEK COMFORT CURVE STRIP VI SCH ×4 (06:37→21:59)
[2017-12-24] MEDS: InsuLIN REG 1unit/0.01ml Soln (100units/ml) SC SCH ×4 (06:37→22:07)
[2017-12-24 07:25] LABS: BUN/Creatinine Ratio 13.5; Basophils # (auto) 0.1 uL; Basophils % (auto) 0.6 % (0.0-2.0); Calcium 8.6 mg/dL (8.5-10.1); Eosinophils # (auto) 0.3 uL; Eosinophils % (auto) 2.3 % (0.0-7.0); Hemoglobin 14.4 g/dL (13.5-17.5); Monocytes # (auto) 0.8 uL
[2017-12-24 07:31] LABS: Hematocrit 42.8 % (41.0-53.0); Lymphocytes # (auto) 2.6 uL; Lymphocytes % (auto) 22.5 % (10.0-50.0); Mean Corpuscular Hemoglobin 30.5 pg (28.0-32.0); Mean Corpuscular Hgb Conc. 33.6 g/dL (32.0-36.0); Mean Corpuscular Volume 90.7 fL (80.0-100.0); Monocytes % (auto) 7.2 % (0.0-12.0); Neutrophils # (auto) 7.9 uL; Neutrophils % (auto) 67.4 % (37.0-80.0); Nucleated Red Blood Cells % 0.1 %; Platelet Count (auto) 496 10^3/uL (140-450); Red Blood Cells 4.72 10^6/uL (4.5-5.90); Red Cell Distribution Width 14.1 % (11.8-14.3); White Blood Cell 11.6 10^3/uL (4.4-10.8)
[2017-12-24 09:17] VITALS: BP_SYST 130; BP_SYST 133; BP_DIAS 76; BP_DIAS 78
[2017-12-24] MEDS: ASCORBIC ACID 500 MG TAB PO SCH (10:35)
[2017-12-24] MEDS: VANCOMYCIN 1GM/250ML 250 ML IV SCH ×2 (10:36→21:54)
[2017-12-24] MEDS: FAMOTIDINE 20 MG TAB PO SCH ×2 (10:36→21:53)
[2017-12-24] MEDS: ZINC SULFATE 220mg CAP or TAB PO SCH (10:36)
[2017-12-24] MEDS: DAKINS QUARTER STR 0.125% (NaHypochlorite) 473 ML TOPICAL SOL TOP SCH ×2 (10:37→22:00)
[2017-12-24] MEDS: LISINOPRIL 5 MG TAB PO SCH (10:37)
[2017-12-24] MEDS: SILVER SULFADIAZINE 1 % TOPICAL CREAM 50GM TOP SCH ×2 (10:37→21:59)
[2017-12-24] MEDS: TIMOLOL MALEATE 0.25 % OPTH SOL 5ML EACHEYE SCH ×2 (10:39→21:57)
[2017-12-24 14:36] VITALS: BP 101/61
[2017-12-24 16:50] VITALS: BP 104/56
[2017-12-24 20:00] VITALS: BP 102/55
[2017-12-24] MEDS: LATANOPROST 0.005 % OPTH(EYE) SOL 2.5ML EACHEYE SCH (21:58)
[2017-12-24 22:14] VITALS: BP 102/55
[2017-12-25] MEDS: LEVOTHYROXINE SODIUM 100 MCG TAB PO SCH (05:44)
[2017-12-25] MEDS: HYDROcodone-ACET 10/325MG TAB PO PRN ×3 (05:44→20:07)
[2017-12-25 05:51] VITALS: BP 129/71
[2017-12-25] MEDS: ACCU-CHEK COMFORT CURVE STRIP VI SCH ×4 (06:24→22:15)
[2017-12-25] MEDS: InsuLIN REG 1unit/0.01ml Soln (100units/ml) SC SCH ×4 (06:24→22:14)
[2017-12-25] MEDS: metFORMIN HYDROCHLORIDE 850 MG TAB PO SCH ×2 (06:33→17:47)
[2017-12-25] MEDS: INSULIN NPH Isophane (HUMAN) 1unit/0.01ml Susp(100units/ml) SC SCH ×2 (06:34→17:48)
[2017-12-25 08:57] VITALS: BP 128/62
[2017-12-25] MEDS: VANCOMYCIN 1GM/250ML 250 ML IV SCH ×2 (10:27→22:00)
[2017-12-25] MEDS: TIMOLOL MALEATE 0.25 % OPTH SOL 5ML EACHEYE SCH ×2 (10:27→22:07)
[2017-12-25] MEDS: ZINC SULFATE 220mg CAP or TAB PO SCH (10:27)
[2017-12-25] MEDS: ASCORBIC ACID 500 MG TAB PO SCH (10:31)
[2017-12-25] MEDS: LISINOPRIL 5 MG TAB PO SCH (10:31)
[2017-12-25] MEDS: SILVER SULFADIAZINE 1 % TOPICAL CREAM 50GM TOP SCH ×2 (10:32→22:15)
[2017-12-25] MEDS: DAKINS QUARTER STR 0.125% (NaHypochlorite) 473 ML TOPICAL SOL TOP SCH ×2 (10:32→22:15)
[2017-12-25] MEDS: FAMOTIDINE 20 MG TAB PO SCH ×2 (10:33→22:06)
[2017-12-25 12:17] VITALS: BP 130/75
[2017-12-25 17:21] VITALS: BP 129/67
[2017-12-25 20:00] VITALS: BP 126/62
[2017-12-25 22:00] VITALS: BP 126/62
[2017-12-25] MEDS: LATANOPROST 0.005 % OPTH(EYE) SOL 2.5ML EACHEYE SCH (22:07)
[2017-12-26 05:00] VITALS: BP 122/62
[2017-12-26] MEDS: LEVOTHYROXINE SODIUM 100 MCG TAB PO SCH (05:43)
[2017-12-26] MEDS: ACCU-CHEK COMFORT CURVE STRIP VI SCH ×4 (06:30→22:24)
[2017-12-26] MEDS: InsuLIN REG 1unit/0.01ml Soln (100units/ml) SC SCH ×4 (06:30→22:23)
[2017-12-26] MEDS: metFORMIN HYDROCHLORIDE 850 MG TAB PO SCH ×2 (06:37→17:32)
[2017-12-26] MEDS: INSULIN NPH Isophane (HUMAN) 1unit/0.01ml Susp(100units/ml) SC SCH ×2 (06:39→17:33)
[2017-12-26] MEDS: ASCORBIC ACID 500 MG TAB PO SCH (09:32)
[2017-12-26] MEDS: FAMOTIDINE 20 MG TAB PO SCH ×2 (09:32→22:23)
[2017-12-26] MEDS: ZINC SULFATE 220mg CAP or TAB PO SCH (09:32)
[2017-12-26] MEDS: TIMOLOL MALEATE 0.25 % OPTH SOL 5ML EACHEYE SCH ×2 (09:32→22:23)
[2017-12-26] MEDS: VANCOMYCIN 1GM/250ML 250 ML IV SCH ×2 (09:33→23:39)
[2017-12-26] MEDS: SILVER SULFADIAZINE 1 % TOPICAL CREAM 50GM TOP SCH ×2 (09:33→22:24)
[2017-12-26] MEDS: DAKINS QUARTER STR 0.125% (NaHypochlorite) 473 ML TOPICAL SOL TOP SCH ×2 (09:33→22:24)
[2017-12-26] MEDS: LISINOPRIL 5 MG TAB PO SCH (09:33)
[2017-12-26] MEDS: HYDROcodone-ACET 10/325MG TAB PO PRN ×3 (09:38→22:24)
[2017-12-26 09:44] VITALS: BP 142/79
[2017-12-26 12:17] VITALS: BP 118/67
[2017-12-26 17:05] VITALS: BP 127/69
[2017-12-26 22:00] VITALS: BP 131/72
[2017-12-26] MEDS: LATANOPROST 0.005 % OPTH(EYE) SOL 2.5ML EACHEYE SCH ×2 (22:00→22:51)
[2017-12-27 05:12] VITALS: BP 126/84
[2017-12-27 06:20] LABS: Basophils # (auto) 0.1 uL; Eosinophils # (auto) 0.3 uL; Eosinophils % (auto) 3.5 % (0.0-7.0); Hematocrit 40.8 % (41.0-53.0); Hemoglobin 13.8 g/dL (13.5-17.5); Lymphocytes # (auto) 2.8 uL; Lymphocytes % (auto) 31.4 % (10.0-50.0); Mean Corpuscular Hemoglobin 30.6 pg (28.0-32.0); Mean Corpuscular Hgb Conc. 33.8 g/dL (32.0-36.0); Mean Corpuscular Volume 90.5 fL (80.0-100.0); Monocytes # (auto) 0.8 uL; Neutrophils # (auto) 4.9 uL; Neutrophils % (auto) 55.1 % (37.0-80.0); Nucleated Red Blood Cells % 0.1 %; Platelet Count (auto) 414 10^3/uL (140-450); Red Cell Distribution Width 14.3 % (11.8-14.3); White Blood Cell 8.9 10^3/uL (4.4-10.8)
[2017-12-27] MEDS: LEVOTHYROXINE SODIUM 100 MCG TAB PO SCH (06:41)
[2017-12-27 06:42] LABS: Albumin 2.8 g/dL (3.4-5.0); BUN/Creatinine Ratio 12.9; Calcium 8.4 mg/dL (8.5-10.1); Potassium 4.4 mmol/L (3.5-5.1); Total Protein 7.8 g/dL (6.4-8.2)
[2017-12-27] MEDS: metFORMIN HYDROCHLORIDE 850 MG TAB PO SCH ×2 (06:42→17:58)
[2017-12-27] MEDS: InsuLIN REG 1unit/0.01ml Soln (100units/ml) SC SCH ×4 (06:42→22:00)
[2017-12-27] MEDS: INSULIN NPH Isophane (HUMAN) 1unit/0.01ml Susp(100units/ml) SC SCH ×2 (06:43→17:59)
[2017-12-27] MEDS: ACCU-CHEK COMFORT CURVE STRIP VI SCH ×4 (06:43→22:08)
[2017-12-27] MEDS: HYDROcodone-ACET 10/325MG TAB PO PRN ×3 (06:43→22:09)
[2017-12-27 06:49] LABS: Bilirubin, Total 0.2 mg/dL (0.2-1.0)
[2017-12-27 08:46] VITALS: BP 121/72
[2017-12-27] MEDS: FAMOTIDINE 20 MG TAB PO SCH ×2 (10:21→22:07)
[2017-12-27] MEDS: ASCORBIC ACID 500 MG TAB PO SCH (10:21)
[2017-12-27] MEDS: ZINC SULFATE 220mg CAP or TAB PO SCH (10:21)
[2017-12-27] MEDS: TIMOLOL MALEATE 0.25 % OPTH SOL 5ML EACHEYE SCH ×2 (10:22→22:08)
[2017-12-27] MEDS: LISINOPRIL 5 MG TAB PO SCH (10:22)
[2017-12-27] MEDS: DAKINS QUARTER STR 0.125% (NaHypochlorite) 473 ML TOPICAL SOL TOP SCH ×2 (10:23→22:08)
[2017-12-27] MEDS: SILVER SULFADIAZINE 1 % TOPICAL CREAM 50GM TOP SCH ×2 (10:23→22:00)
[2017-12-27 12:40] VITALS: BP 103/64
[2017-12-27] MEDS: VANCOMYCIN 1GM/250ML 250 ML IV SCH (13:49)
[2017-12-27 16:54] VITALS: BP 127/76
[2017-12-27 22:17] VITALS: BP 121/71
[2017-12-28] MEDS: VANCOMYCIN 1GM/250ML 250 ML IV SCH ×2 (04:11→18:00)
[2017-12-28 05:36] VITALS: BP 135/78
[2017-12-28] MEDS: LEVOTHYROXINE SODIUM 100 MCG TAB PO SCH (06:36)
[2017-12-28] MEDS: metFORMIN HYDROCHLORIDE 850 MG TAB PO SCH ×2 (06:36→18:33)
[2017-12-28] MEDS: InsuLIN REG 1unit/0.01ml Soln (100units/ml) SC SCH ×4 (06:36→21:57)
[2017-12-28] MEDS: ACCU-CHEK COMFORT CURVE STRIP VI SCH ×4 (06:37→21:50)
[2017-12-28] MEDS: INSULIN NPH Isophane (HUMAN) 1unit/0.01ml Susp(100units/ml) SC SCH ×2 (06:37→18:33)
[2017-12-28] MEDS: HYDROcodone-ACET 10/325MG TAB PO PRN ×3 (06:38→21:57)
[2017-12-28 08:40] VITALS: BP 150/72
[2017-12-28] MEDS: ASCORBIC ACID 500 MG TAB PO SCH (10:13)
[2017-12-28] MEDS: LISINOPRIL 5 MG TAB PO SCH (10:13)
[2017-12-28] MEDS: ZINC SULFATE 220mg CAP or TAB PO SCH (10:13)
[2017-12-28] MEDS: TIMOLOL MALEATE 0.25 % OPTH SOL 5ML EACHEYE SCH ×2 (10:13→21:50)
[2017-12-28] MEDS: FAMOTIDINE 20 MG TAB PO SCH ×2 (10:13→21:50)
[2017-12-28 12:50] VITALS: BP 136/78
[2017-12-28 17:00] VITALS: BP 160/96
[2017-12-28] MEDS: LATANOPROST 0.005 % OPTH(EYE) SOL 2.5ML EACHEYE SCH (21:50)
[2017-12-28 22:00] VITALS: BP 133/80
[2017-12-28] MEDS: DAKINS QUARTER STR 0.125% (NaHypochlorite) 473 ML TOPICAL SOL TOP SCH (23:45)
[2017-12-29 04:40] VITALS: BP 124/76
[2017-12-29] MEDS: ACCU-CHEK COMFORT CURVE STRIP VI SCH ×4 (06:24→22:16)
[2017-12-29] MEDS: LEVOTHYROXINE SODIUM 100 MCG TAB PO SCH (06:24)
[2017-12-29] MEDS: metFORMIN HYDROCHLORIDE 850 MG TAB PO SCH ×2 (06:24→18:17)
[2017-12-29] MEDS: INSULIN NPH Isophane (HUMAN) 1unit/0.01ml Susp(100units/ml) SC SCH ×2 (06:26→18:17)
[2017-12-29] MEDS: InsuLIN REG 1unit/0.01ml Soln (100units/ml) SC SCH ×4 (06:26→22:29)
[2017-12-29] MEDS: VANCOMYCIN 1GM/250ML 250 ML IV SCH ×2 (08:23→22:16)
[2017-12-29] MEDS: TIMOLOL MALEATE 0.25 % OPTH SOL 5ML EACHEYE SCH ×2 (08:24→22:16)
[2017-12-29] MEDS: ZINC SULFATE 220mg CAP or TAB PO SCH (08:24)
[2017-12-29] MEDS: FAMOTIDINE 20 MG TAB PO SCH ×2 (08:25→22:16)
[2017-12-29] MEDS: ASCORBIC ACID 500 MG TAB PO SCH (08:25)
[2017-12-29] MEDS: LISINOPRIL 5 MG TAB PO SCH (08:25)
[2017-12-29] MEDS: DAKINS QUARTER STR 0.125% (NaHypochlorite) 473 ML TOPICAL SOL TOP SCH ×2 (08:26→22:29)
[2017-12-29] MEDS: HYDROcodone-ACET 10/325MG TAB PO PRN ×3 (08:45→19:32)
[2017-12-29 09:00] VITALS: BP 141/81
[2017-12-29 13:00] VITALS: BP 135/85
[2017-12-29 17:00] VITALS: BP 129/80
[2017-12-29 22:00] VITALS: BP 148/82
[2017-12-29] MEDS: LATANOPROST 0.005 % OPTH(EYE) SOL 2.5ML EACHEYE SCH (22:16)
[2017-12-30] MEDS: HYDROcodone-ACET 10/325MG TAB PO PRN ×4 (04:46→22:06)
[2017-12-30 05:00] VITALS: BP 142/84
[2017-12-30 06:05] LABS: Basophils # (auto) 0.1 uL; Basophils % (auto) 1.3 % (0.0-2.0); Eosinophils # (auto) 0.3 uL; Eosinophils % (auto) 3.7 % (0.0-7.0); Hematocrit 40.3 % (41.0-53.0); Hemoglobin 13.8 g/dL (13.5-17.5); Lymphocytes # (auto) 2.8 uL; Lymphocytes % (auto) 30.3 % (10.0-50.0); Mean Corpuscular Hemoglobin 31.1 pg (28.0-32.0); Mean Corpuscular Hgb Conc. 34.3 g/dL (32.0-36.0); Mean Corpuscular Volume 90.5 fL (80.0-100.0); Monocytes # (auto) 0.7 uL; Neutrophils # (auto) 5.2 uL; Neutrophils % (auto) 56.7 % (37.0-80.0); Nucleated Red Blood Cells % 0.1 %; Platelet Count (auto) 330 10^3/uL (140-450); Red Blood Cells 4.45 10^6/uL (4.5-5.90); Red Cell Distribution Width 14.4 % (11.8-14.3); White Blood Cell 9.1 10^3/uL (4.4-10.8)
[2017-12-30 06:21] LABS: Potassium 4.2 mmol/L (3.5-5.1)
[2017-12-30 06:29] LABS: BUN/Creatinine Ratio 13.8
[2017-12-30] MEDS: metFORMIN HYDROCHLORIDE 850 MG TAB PO SCH ×2 (06:38→17:33)
[2017-12-30] MEDS: INSULIN NPH Isophane (HUMAN) 1unit/0.01ml Susp(100units/ml) SC SCH ×2 (06:38→17:34)
[2017-12-30] MEDS: InsuLIN REG 1unit/0.01ml Soln (100units/ml) SC SCH ×4 (06:38→22:05)
[2017-12-30] MEDS: LEVOTHYROXINE SODIUM 100 MCG TAB PO SCH (06:38)
[2017-12-30] MEDS: ACCU-CHEK COMFORT CURVE STRIP VI SCH ×4 (06:38→22:05)
[2017-12-30 09:00] VITALS: BP 133/94
[2017-12-30] MEDS: FAMOTIDINE 20 MG TAB PO SCH ×3 (10:00→22:05)
[2017-12-30] MEDS: TIMOLOL MALEATE 0.25 % OPTH SOL 5ML EACHEYE SCH ×2 (11:33→22:04)
[2017-12-30] MEDS: ZINC SULFATE 220mg CAP or TAB PO SCH (11:34)
[2017-12-30] MEDS: ASCORBIC ACID 500 MG TAB PO SCH (11:34)
[2017-12-30] MEDS: DAKINS QUARTER STR 0.125% (NaHypochlorite) 473 ML TOPICAL SOL TOP SCH ×2 (11:35→22:05)
[2017-12-30] MEDS: ENOXAPARIN SOD 40 MG/0.4 ML SYRINGE SC SCH (11:35)
[2017-12-30] MEDS: LISINOPRIL 5 MG TAB PO SCH (11:37)
[2017-12-30] MEDS: VANCOMYCIN 1GM/250ML 250 ML IV SCH (11:58)
[2017-12-30 13:00] VITALS: BP 134/77
[2017-12-30 16:56] VITALS: BP 134/80
[2017-12-30 22:00] VITALS: BP 118/75
[2017-12-30] MEDS: LATANOPROST 0.005 % OPTH(EYE) SOL 2.5ML EACHEYE SCH (22:05)
[2017-12-31] MEDS: VANCOMYCIN 1GM/250ML 250 ML IV SCH ×2 (01:45→15:53)
[2017-12-31 05:00] VITALS: BP 140/79
[2017-12-31] MEDS: LEVOTHYROXINE SODIUM 100 MCG TAB PO SCH (06:42)
[2017-12-31] MEDS: metFORMIN HYDROCHLORIDE 850 MG TAB PO SCH ×2 (06:43→17:57)
[2017-12-31] MEDS: InsuLIN REG 1unit/0.01ml Soln (100units/ml) SC SCH ×4 (06:43→22:00)
[2017-12-31] MEDS: ACCU-CHEK COMFORT CURVE STRIP VI SCH ×4 (06:43→22:21)
[2017-12-31] MEDS: HYDROcodone-ACET 10/325MG TAB PO PRN ×4 (06:48→22:22)
[2017-12-31] MEDS: INSULIN NPH Isophane (HUMAN) 1unit/0.01ml Susp(100units/ml) SC SCH ×2 (06:48→17:46)
[2017-12-31] MEDS: ASCORBIC ACID 500 MG TAB PO SCH (08:36)
[2017-12-31] MEDS: ENOXAPARIN SOD 40 MG/0.4 ML SYRINGE SC SCH (08:36)
[2017-12-31] MEDS: ZINC SULFATE 220mg CAP or TAB PO SCH (08:37)
[2017-12-31] MEDS: LISINOPRIL 5 MG TAB PO SCH (08:37)
[2017-12-31] MEDS: FAMOTIDINE 20 MG TAB PO SCH ×2 (08:37→22:21)
[2017-12-31] MEDS: DAKINS QUARTER STR 0.125% (NaHypochlorite) 473 ML TOPICAL SOL TOP SCH ×2 (08:38→22:21)
[2017-12-31] MEDS: TIMOLOL MALEATE 0.25 % OPTH SOL 5ML EACHEYE SCH ×2 (08:39→22:20)
[2017-12-31 09:00] VITALS: BP 130/80
[2017-12-31 13:00] VITALS: BP 110/67
[2017-12-31 17:00] VITALS: BP 141/74
[2017-12-31 22:00] VITALS: BP 141/76
[2017-12-31] MEDS: LATANOPROST 0.005 % OPTH(EYE) SOL 2.5ML EACHEYE SCH (22:20)
[2018-01-01 05:00] VITALS: BP 106/59
[2018-01-01] MEDS: LEVOTHYROXINE SODIUM 100 MCG TAB PO SCH (06:13)
[2018-01-01] MEDS: VANCOMYCIN 1GM/250ML 250 ML IV SCH ×2 (06:13→20:19)
[2018-01-01] MEDS: ACCU-CHEK COMFORT CURVE STRIP VI SCH ×4 (06:45→22:32)
[2018-01-01] MEDS: metFORMIN HYDROCHLORIDE 850 MG TAB PO SCH ×2 (06:45→17:57)
[2018-01-01] MEDS: InsuLIN REG 1unit/0.01ml Soln (100units/ml) SC SCH ×4 (06:45→22:39)
[2018-01-01] MEDS: INSULIN NPH Isophane (HUMAN) 1unit/0.01ml Susp(100units/ml) SC SCH ×2 (06:46→16:54)
[2018-01-01] MEDS: HYDROcodone-ACET 10/325MG TAB PO PRN ×4 (06:55→22:39)
[2018-01-01] MEDS ORDERED: VANCOMYCIN PER PHARMACY 0 MG IV SCH (07:45)
[2018-01-01] MEDS ORDERED: DEXTROSE (50%) 50ML SYRG IV PRN (07:45)
[2018-01-01] MEDS ORDERED: ONDANSETRON HCL 4 MG/2 ML VIAL IV PRN (07:53)
[2018-01-01 08:17] VITALS: BP 138/80
[2018-01-01] MEDS: FAMOTIDINE 20 MG TAB PO SCH ×2 (08:46→22:32)
[2018-01-01] MEDS: TIMOLOL MALEATE 0.25 % OPTH SOL 5ML EACHEYE SCH ×2 (08:46→22:31)
[2018-01-01] MEDS: ASCORBIC ACID 500 MG TAB PO SCH (08:46)
[2018-01-01] MEDS: DAKINS QUARTER STR 0.125% (NaHypochlorite) 473 ML TOPICAL SOL TOP SCH ×2 (08:46→22:32)
[2018-01-01] MEDS: ENOXAPARIN SOD 40 MG/0.4 ML SYRINGE SC SCH (08:46)
[2018-01-01] MEDS: ZINC SULFATE 220mg CAP or TAB PO SCH (08:46)
[2018-01-01] MEDS: LISINOPRIL 5 MG TAB PO SCH (09:22)
[2018-01-01 12:30] VITALS: BP 130/66
[2018-01-01 17:59] VITALS: BP 137/81
[2018-01-01] MEDS: LATANOPROST 0.005 % OPTH(EYE) SOL 2.5ML EACHEYE SCH (22:00)
[2018-01-01 22:07] VITALS: BP 126/75
[2018-01-02 05:45] VITALS: BP 122/75
[2018-01-02] MEDS: INSULIN NPH Isophane (HUMAN) 1unit/0.01ml Susp(100units/ml) SC SCH ×2 (06:50→18:50)
[2018-01-02] MEDS: ACCU-CHEK COMFORT CURVE STRIP VI SCH ×4 (06:50→21:58)
[2018-01-02] MEDS: InsuLIN REG 1unit/0.01ml Soln (100units/ml) SC SCH ×4 (06:51→21:51)
[2018-01-02] MEDS: metFORMIN HYDROCHLORIDE 850 MG TAB PO SCH ×2 (06:51→18:49)
[2018-01-02] MEDS: LEVOTHYROXINE SODIUM 100 MCG TAB PO SCH (06:51)
[2018-01-02] MEDS: HYDROcodone-ACET 10/325MG TAB PO PRN ×3 (06:56→18:51)
[2018-01-02 09:11] VITALS: BP 148/81
[2018-01-02] MEDS: VANCOMYCIN 1GM/250ML 250 ML IV SCH (09:54)
[2018-01-02] MEDS: ZINC SULFATE 220mg CAP or TAB PO SCH (09:55)
[2018-01-02] MEDS: ASCORBIC ACID 500 MG TAB PO SCH (09:55)
[2018-01-02] MEDS: FAMOTIDINE 20 MG TAB PO SCH ×2 (09:55→21:51)
[2018-01-02] MEDS: LISINOPRIL 5 MG TAB PO SCH (09:55)
[2018-01-02] MEDS: ENOXAPARIN SOD 40 MG/0.4 ML SYRINGE SC SCH (09:56)
[2018-01-02] MEDS: TIMOLOL MALEATE 0.25 % OPTH SOL 5ML EACHEYE SCH ×2 (09:56→21:50)
[2018-01-02] MEDS: DAKINS QUARTER STR 0.125% (NaHypochlorite) 473 ML TOPICAL SOL TOP SCH ×2 (09:57→21:57)
[2018-01-02 12:15] VITALS: BP 135/84
[2018-01-02 17:33] VITALS: BP 124/77
[2018-01-02] MEDS: LATANOPROST 0.005 % OPTH(EYE) SOL 2.5ML EACHEYE SCH (21:50)
[2018-01-02 22:00] VITALS: BP 144/76
[2018-01-03] MEDS: VANCOMYCIN 1GM/250ML 250 ML IV SCH ×2 (00:58→14:14)
[2018-01-03 05:00] VITALS: BP 110/74
[2018-01-03] MEDS: metFORMIN HYDROCHLORIDE 850 MG TAB PO SCH ×2 (06:28→18:00)
[2018-01-03] MEDS: LEVOTHYROXINE SODIUM 100 MCG TAB PO SCH (06:28)
[2018-01-03] MEDS: InsuLIN REG 1unit/0.01ml Soln (100units/ml) SC SCH ×4 (06:28→22:51)
[2018-01-03] MEDS: ACCU-CHEK COMFORT CURVE STRIP VI SCH ×4 (06:29→22:52)
[2018-01-03] MEDS: INSULIN NPH Isophane (HUMAN) 1unit/0.01ml Susp(100units/ml) SC SCH ×2 (06:29→18:00)
[2018-01-03 07:48] VITALS: BP 132/73
[2018-01-03] MEDS: TIMOLOL MALEATE 0.25 % OPTH SOL 5ML EACHEYE SCH ×2 (10:00→22:00)
[2018-01-03] MEDS: ENOXAPARIN SOD 40 MG/0.4 ML SYRINGE SC SCH (10:00)
[2018-01-03] MEDS: DAKINS QUARTER STR 0.125% (NaHypochlorite) 473 ML TOPICAL SOL TOP SCH ×2 (10:00→22:00)
[2018-01-03] MEDS: ASCORBIC ACID 500 MG TAB PO SCH (10:20)
[2018-01-03] MEDS: ZINC SULFATE 220mg CAP or TAB PO SCH (10:20)
[2018-01-03] MEDS: FAMOTIDINE 20 MG TAB PO SCH ×2 (10:20→22:51)
[2018-01-03] MEDS: LISINOPRIL 5 MG TAB PO SCH (10:21)
[2018-01-03] MEDS: HYDROcodone-ACET 10/325MG TAB PO PRN (10:51)
[2018-01-03 12:11] VITALS: BP 126/83
[2018-01-03 16:57] VITALS: BP 131/77
[2018-01-03] MEDS ORDERED: ePHEDrine SULFATE 50 MG/ML AMP IV PRN (19:00)
[2018-01-03] MEDS ORDERED: MIDAZOLAM HCL 1MG/1ML-2 ML VIAL IV PRN (19:00)
[2018-01-03] MEDS ORDERED: KETOROLAC TROMETH 30 MG/ML 1ML VIAL IV ONE (19:00)
[2018-01-03] MEDS ORDERED: LABETALOL HCL 5 MG/ML 4ML SYRINGE IV PRN (19:00)
[2018-01-03] MEDS ORDERED: ONDANSETRON HCL 4 MG/2 ML VIAL IV ONE (19:00)
[2018-01-03] MEDS ORDERED: ACCU-CHEK COMFORT CURVE STRIP VI ONE (19:00)
[2018-01-03] MEDS ORDERED: MORPHINE SULFATE 4 MG/ML SYR/VIAL IV PRN (19:00)
[2018-01-03] MEDS ORDERED: LIDOCAINE W/ EPINEPHRINE 1% 20ML VIAL ONE (19:47)
[2018-01-03] MEDS ORDERED: LIDOCAINE 1% (LOCAL ANESTH.) PF 5ml SDV ONE (19:47)
[2018-01-03] MEDS ORDERED: fentaNYL CITRATE 100 MCG/2 ML VL ONE (20:00)
[2018-01-03] MEDS ORDERED: MIDAZOLAM HCL 1MG/1ML-2 ML VIAL ONE (20:00)
[2018-01-03] MEDS ORDERED: MEPERIDINE HCL (50 MG/ML) 1 ML VIAL ONE (20:00)
[2018-01-03] MEDS ORDERED: HYDROmorphone HCL 2 MG/ML VL IV ONE (20:00)
[2018-01-03] MEDS ORDERED: DEXAMETHASONE SOD PHOS 10MG/1ML VIAL INJ ONE (20:00)
[2018-01-03] MEDS ORDERED: PROPOFOL 10 MG/ML 20 ML IV ONE (20:00)
[2018-01-03] MEDS ORDERED: MORPHINE SULFATE 4 MG/ML SYR/VIAL IV ONE (20:00)
[2018-01-03 22:00] VITALS: BP 137/80
[2018-01-03] MEDS: LATANOPROST 0.005 % OPTH(EYE) SOL 2.5ML EACHEYE SCH (22:00)
[2018-01-04] MEDS: HYDROcodone-ACET 10/325MG TAB PO PRN ×5 (00:45→22:36)
[2018-01-04 02:55] LABS: Basophils # (auto) 0 uL; Basophils % (auto) 0.4 % (0.0-2.0); Eosinophils # (auto) 0 uL; Hematocrit 40.9 % (41.0-53.0); Hemoglobin 13.8 g/dL (13.5-17.5); Lymphocytes # (auto) 1.2 uL; Lymphocytes % (auto) 15.6 % (10.0-50.0); Mean Corpuscular Hemoglobin 30.4 pg (28.0-32.0); Mean Corpuscular Hgb Conc. 33.7 g/dL (32.0-36.0); Mean Corpuscular Volume 90.2 fL (80.0-100.0); Monocytes # (auto) 0.1 uL; Monocytes % (auto) 0.8 % (0.0-12.0); Neutrophils # (auto) 6.6 uL; Neutrophils % (auto) 83.2 % (37.0-80.0); Platelet Count (auto) 252 10^3/uL (140-450); Red Blood Cells 4.54 10^6/uL (4.5-5.90); Red Cell Distribution Width 14.4 % (11.8-14.3); White Blood Cell 7.9 10^3/uL (4.4-10.8)
[2018-01-04 03:11] LABS: Albumin 2.8 g/dL (3.4-5.0); BUN/Creatinine Ratio 15.1; Calcium 8.1 mg/dL (8.5-10.1); Potassium 4.7 mmol/L (3.5-5.1)
[2018-01-04 03:14] LABS: Bilirubin, Total 0.2 mg/dL (0.2-1.0); Total Protein 7.5 g/dL (6.4-8.2)
[2018-01-04] MEDS: VANCOMYCIN 1GM/250ML 250 ML IV SCH ×2 (03:45→14:59)
[2018-01-04 05:25] VITALS: BP 126/81
[2018-01-04] MEDS: LEVOTHYROXINE SODIUM 100 MCG TAB PO SCH (06:47)
[2018-01-04] MEDS: metFORMIN HYDROCHLORIDE 850 MG TAB PO SCH ×2 (06:48→18:08)
[2018-01-04] MEDS: InsuLIN REG 1unit/0.01ml Soln (100units/ml) SC SCH ×4 (06:49→22:34)
[2018-01-04] MEDS: ACCU-CHEK COMFORT CURVE STRIP VI SCH ×4 (06:49→22:34)
[2018-01-04] MEDS: INSULIN NPH Isophane (HUMAN) 1unit/0.01ml Susp(100units/ml) SC SCH ×2 (06:49→18:08)
[2018-01-04] MEDS ORDERED: VANCOMYCIN 1GM/250ML 250 ML IV SCH (08:45)
[2018-01-04 09:00] VITALS: BP 130/70
[2018-01-04] MEDS: DAKINS QUARTER STR 0.125% (NaHypochlorite) 473 ML TOPICAL SOL TOP SCH ×2 (10:00→22:00)
[2018-01-04] MEDS: ASCORBIC ACID 500 MG TAB PO SCH (10:47)
[2018-01-04] MEDS: ENOXAPARIN SOD 40 MG/0.4 ML SYRINGE SC SCH (10:48)
[2018-01-04] MEDS: LISINOPRIL 5 MG TAB PO SCH (10:49)
[2018-01-04] MEDS: FAMOTIDINE 20 MG TAB PO SCH ×2 (10:49→22:37)
[2018-01-04] MEDS: ZINC SULFATE 220mg CAP or TAB PO SCH (10:49)
[2018-01-04 13:00] VITALS: BP 145/80
[2018-01-04] MEDS: TIMOLOL MALEATE 0.25 % OPTH SOL 5ML EACHEYE SCH ×2 (13:14→22:33)
[2018-01-04 17:00] VITALS: BP 124/71
[2018-01-04 22:00] VITALS: BP 154/85
[2018-01-04] MEDS: LATANOPROST 0.005 % OPTH(EYE) SOL 2.5ML EACHEYE SCH (22:33)
[2018-01-05] MEDS: VANCOMYCIN 1GM/250ML 250 ML IV SCH ×2 (04:23→20:12)
[2018-01-05] MEDS: HYDROcodone-ACET 10/325MG TAB PO PRN ×3 (04:41→17:24)
[2018-01-05 05:00] VITALS: BP 140/92
[2018-01-05] MEDS: LEVOTHYROXINE SODIUM 100 MCG TAB PO SCH (06:28)
[2018-01-05] MEDS: metFORMIN HYDROCHLORIDE 850 MG TAB PO SCH ×2 (06:28→17:17)
[2018-01-05] MEDS: ACCU-CHEK COMFORT CURVE STRIP VI SCH ×4 (06:29→22:13)
[2018-01-05] MEDS: INSULIN NPH Isophane (HUMAN) 1unit/0.01ml Susp(100units/ml) SC SCH ×2 (06:29→17:17)
[2018-01-05] MEDS: InsuLIN REG 1unit/0.01ml Soln (100units/ml) SC SCH ×4 (06:29→22:54)
[2018-01-05 09:00] VITALS: BP 150/82
[2018-01-05] MEDS: ASCORBIC ACID 500 MG TAB PO SCH (09:17)
[2018-01-05] MEDS: FAMOTIDINE 20 MG TAB PO SCH ×2 (09:17→22:13)
[2018-01-05] MEDS: LISINOPRIL 5 MG TAB PO SCH (09:17)
[2018-01-05] MEDS: ZINC SULFATE 220mg CAP or TAB PO SCH (09:17)
[2018-01-05] MEDS: ENOXAPARIN SOD 40 MG/0.4 ML SYRINGE SC SCH (09:18)
[2018-01-05] MEDS: TIMOLOL MALEATE 0.25 % OPTH SOL 5ML EACHEYE SCH ×2 (10:05→22:00)
[2018-01-05] MEDS: DAKINS QUARTER STR 0.125% (NaHypochlorite) 473 ML TOPICAL SOL TOP SCH (10:06)
[2018-01-05 13:00] VITALS: BP_SYST 118; BP_SYST 140; BP_DIAS 70; BP_DIAS 94
[2018-01-05 17:00] VITALS: BP 150/76
[2018-01-05 21:41] VITALS: BP 124/80
[2018-01-05] MEDS: LATANOPROST 0.005 % OPTH(EYE) SOL 2.5ML EACHEYE SCH (22:13)
[2018-01-06 05:53] VITALS: BP 142/79
[2018-01-06] MEDS: LEVOTHYROXINE SODIUM 100 MCG TAB PO SCH (06:35)
[2018-01-06] MEDS: ACCU-CHEK COMFORT CURVE STRIP VI SCH ×4 (06:36→21:38)
[2018-01-06] MEDS: metFORMIN HYDROCHLORIDE 850 MG TAB PO SCH ×2 (06:36→17:40)
[2018-01-06] MEDS: InsuLIN REG 1unit/0.01ml Soln (100units/ml) SC SCH ×4 (06:37→22:34)
[2018-01-06] MEDS: INSULIN NPH Isophane (HUMAN) 1unit/0.01ml Susp(100units/ml) SC SCH ×2 (06:37→17:40)
[2018-01-06] MEDS: HYDROcodone-ACET 10/325MG TAB PO PRN ×3 (06:38→17:46)
[2018-01-06] MEDS: VANCOMYCIN 1GM/250ML 250 ML IV SCH ×2 (08:21→20:14)
[2018-01-06 08:29] VITALS: BP 142/81
[2018-01-06] MEDS: TIMOLOL MALEATE 0.25 % OPTH SOL 5ML EACHEYE SCH ×2 (10:49→21:37)
[2018-01-06] MEDS: LISINOPRIL 5 MG TAB PO SCH (10:49)
[2018-01-06] MEDS: ZINC SULFATE 220mg CAP or TAB PO SCH (10:50)
[2018-01-06] MEDS: ASCORBIC ACID 500 MG TAB PO SCH (10:50)
[2018-01-06] MEDS: FAMOTIDINE 20 MG TAB PO SCH ×2 (10:50→21:38)
[2018-01-06] MEDS: ENOXAPARIN SOD 40 MG/0.4 ML SYRINGE SC SCH (10:51)
[2018-01-06 12:00] VITALS: BP 127/73
[2018-01-06 16:56] VITALS: BP 124/78
[2018-01-06 19:49] LABS: Albumin 3.1 g/dL (3.4-5.0); BUN/Creatinine Ratio 13.9; Calcium 8.2 mg/dL (8.5-10.1); Potassium 4.6 mmol/L (3.5-5.1)
[2018-01-06 19:51] LABS: Bilirubin, Total 0.2 mg/dL (0.2-1.0); Total Protein 7.6 g/dL (6.4-8.2)
[2018-01-06] MEDS: LATANOPROST 0.005 % OPTH(EYE) SOL 2.5ML EACHEYE SCH (21:38)
[2018-01-07 05:00] VITALS: BP 123/78
[2018-01-07] MEDS: INSULIN NPH Isophane (HUMAN) 1unit/0.01ml Susp(100units/ml) SC SCH ×3 (06:36→18:00)
[2018-01-07] MEDS: LEVOTHYROXINE SODIUM 100 MCG TAB PO SCH (06:36)
[2018-01-07] MEDS: metFORMIN HYDROCHLORIDE 850 MG TAB PO SCH ×2 (06:36→17:21)
[2018-01-07] MEDS: ACCU-CHEK COMFORT CURVE STRIP VI SCH ×4 (06:36→22:19)
[2018-01-07] MEDS: InsuLIN REG 1unit/0.01ml Soln (100units/ml) SC SCH ×4 (06:37→22:20)
[2018-01-07] MEDS: HYDROcodone-ACET 10/325MG TAB PO PRN ×3 (06:37→22:19)
[2018-01-07 08:30] VITALS: BP 124/73
[2018-01-07] MEDS: ENOXAPARIN SOD 40 MG/0.4 ML SYRINGE SC SCH (09:12)
[2018-01-07] MEDS: VANCOMYCIN 1GM/250ML 250 ML IV SCH (09:12)
[2018-01-07] MEDS: ZINC SULFATE 220mg CAP or TAB PO SCH (09:13)
[2018-01-07] MEDS: FAMOTIDINE 20 MG TAB PO SCH ×2 (09:13→22:18)
[2018-01-07] MEDS: TIMOLOL MALEATE 0.25 % OPTH SOL 5ML EACHEYE SCH ×2 (09:13→22:18)
[2018-01-07] MEDS: LISINOPRIL 5 MG TAB PO SCH (09:13)
[2018-01-07] MEDS: ASCORBIC ACID 500 MG TAB PO SCH (09:13)
[2018-01-07 12:30] VITALS: BP 125/72
[2018-01-07 16:55] VITALS: BP 134/71
[2018-01-07] MEDS ORDERED: metFORMIN HYDROCHLORIDE 850 MG TAB PO SCH (18:00)
[2018-01-07 21:34] VITALS: BP 124/67
[2018-01-07] MEDS: ceFAZolin 1GM/50ML 50 ML IV SCH (22:18)
[2018-01-07] MEDS: LATANOPROST 0.005 % OPTH(EYE) SOL 2.5ML EACHEYE SCH (22:18)
[2018-01-08 04:53] VITALS: BP 94/56
[2018-01-08] MEDS: HYDROcodone-ACET 10/325MG TAB PO PRN ×3 (06:20→22:16)
[2018-01-08] MEDS: ceFAZolin 1GM/50ML 50 ML IV SCH ×3 (06:47→22:13)
[2018-01-08] MEDS: INSULIN NPH Isophane (HUMAN) 1unit/0.01ml Susp(100units/ml) SC SCH ×2 (06:47→17:51)
[2018-01-08] MEDS: LEVOTHYROXINE SODIUM 100 MCG TAB PO SCH (06:47)
[2018-01-08] MEDS: ACCU-CHEK COMFORT CURVE STRIP VI SCH ×4 (06:47→22:13)
[2018-01-08] MEDS: InsuLIN REG 1unit/0.01ml Soln (100units/ml) SC SCH ×4 (06:48→22:00)
[2018-01-08 08:30] VITALS: BP 114/75
[2018-01-08 08:55] VITALS: BP 114/75
[2018-01-08] MEDS: TIMOLOL MALEATE 0.25 % OPTH SOL 5ML EACHEYE SCH ×2 (09:09→22:12)
[2018-01-08] MEDS: ENOXAPARIN SOD 40 MG/0.4 ML SYRINGE SC SCH (09:10)
[2018-01-08] MEDS: FAMOTIDINE 20 MG TAB PO SCH ×2 (09:10→22:13)
[2018-01-08] MEDS: ASCORBIC ACID 500 MG TAB PO SCH (09:10)
[2018-01-08] MEDS: LISINOPRIL 5 MG TAB PO SCH (09:11)
[2018-01-08] MEDS: ZINC SULFATE 220mg CAP or TAB PO SCH (09:11)
[2018-01-08] MEDS: metFORMIN HYDROCHLORIDE 850 MG TAB PO SCH ×2 (09:12→17:49)
[2018-01-08 13:00] VITALS: BP 107/78
[2018-01-08 16:23] VITALS: BP 135/80
[2018-01-08 21:35] VITALS: BP 104/68
[2018-01-08] MEDS: LATANOPROST 0.005 % OPTH(EYE) SOL 2.5ML EACHEYE SCH (22:12)
[2018-01-09 04:45] VITALS: BP 128/78
[2018-01-09] MEDS: ceFAZolin 1GM/50ML 50 ML IV SCH ×3 (06:30→22:17)
[2018-01-09] MEDS: LEVOTHYROXINE SODIUM 100 MCG TAB PO SCH (06:30)
[2018-01-09] MEDS: InsuLIN REG 1unit/0.01ml Soln (100units/ml) SC SCH ×4 (06:31→22:18)
[2018-01-09] MEDS: ACCU-CHEK COMFORT CURVE STRIP VI SCH ×4 (06:31→22:18)
[2018-01-09] MEDS: INSULIN NPH Isophane (HUMAN) 1unit/0.01ml Susp(100units/ml) SC SCH ×2 (06:35→17:42)
[2018-01-09] MEDS: HYDROcodone-ACET 10/325MG TAB PO PRN ×3 (06:42→22:18)
[2018-01-09] MEDS: metFORMIN HYDROCHLORIDE 850 MG TAB PO SCH ×2 (08:42→17:40)
[2018-01-09 08:49] VITALS: BP 159/80
[2018-01-09] MEDS: ENOXAPARIN SOD 40 MG/0.4 ML SYRINGE SC SCH (09:44)
[2018-01-09] MEDS: FAMOTIDINE 20 MG TAB PO SCH ×2 (09:44→22:18)
[2018-01-09] MEDS: TIMOLOL MALEATE 0.25 % OPTH SOL 5ML EACHEYE SCH ×2 (09:44→22:17)
[2018-01-09] MEDS: ASCORBIC ACID 500 MG TAB PO SCH (09:44)
[2018-01-09] MEDS: ZINC SULFATE 220mg CAP or TAB PO SCH (09:44)
[2018-01-09] MEDS: LISINOPRIL 5 MG TAB PO SCH (09:45)
[2018-01-09 12:36] VITALS: BP 136/80
[2018-01-09 17:01] VITALS: BP 121/81
[2018-01-09 22:00] VITALS: BP 114/70
[2018-01-09] MEDS: LATANOPROST 0.005 % OPTH(EYE) SOL 2.5ML EACHEYE SCH (22:17)
[2018-01-10 05:00] VITALS: BP 103/69
[2018-01-10] MEDS: ceFAZolin 1GM/50ML 50 ML IV SCH ×3 (06:27→21:17)
[2018-01-10] MEDS: LEVOTHYROXINE SODIUM 100 MCG TAB PO SCH (06:27)
[2018-01-10] MEDS: HYDROcodone-ACET 10/325MG TAB PO PRN ×3 (06:28→21:21)
[2018-01-10] MEDS: InsuLIN REG 1unit/0.01ml Soln (100units/ml) SC SCH ×4 (06:28→21:36)
[2018-01-10] MEDS: ACCU-CHEK COMFORT CURVE STRIP VI SCH ×4 (06:28→21:18)
[2018-01-10] MEDS: INSULIN NPH Isophane (HUMAN) 1unit/0.01ml Susp(100units/ml) SC SCH ×2 (06:55→17:37)
[2018-01-10] MEDS: metFORMIN HYDROCHLORIDE 850 MG TAB PO SCH ×2 (07:53→17:36)
[2018-01-10 08:41] VITALS: BP 144/87
[2018-01-10] MEDS: TIMOLOL MALEATE 0.25 % OPTH SOL 5ML EACHEYE SCH ×2 (09:27→21:16)
[2018-01-10] MEDS: ENOXAPARIN SOD 40 MG/0.4 ML SYRINGE SC SCH (09:27)
[2018-01-10] MEDS: ZINC SULFATE 220mg CAP or TAB PO SCH (09:28)
[2018-01-10] MEDS: ASCORBIC ACID 500 MG TAB PO SCH (09:28)
[2018-01-10] MEDS: FAMOTIDINE 20 MG TAB PO SCH ×2 (09:28→21:18)
[2018-01-10] MEDS: LISINOPRIL 5 MG TAB PO SCH (09:28)
[2018-01-10 14:25] VITALS: BP 110/72
[2018-01-10 17:19] VITALS: BP 117/90
[2018-01-10] MEDS: LATANOPROST 0.005 % OPTH(EYE) SOL 2.5ML EACHEYE SCH ×2 (21:17→21:42)
[2018-01-10 21:40] VITALS: BP 138/73
[2018-01-11 04:43] VITALS: BP 119/74
[2018-01-11] MEDS: ceFAZolin 1GM/50ML 50 ML IV SCH ×3 (06:16→21:45)
[2018-01-11] MEDS: LEVOTHYROXINE SODIUM 100 MCG TAB PO SCH (06:16)
[2018-01-11] MEDS: ACCU-CHEK COMFORT CURVE STRIP VI SCH ×4 (06:16→21:45)
[2018-01-11] MEDS: InsuLIN REG 1unit/0.01ml Soln (100units/ml) SC SCH ×4 (06:17→22:00)
[2018-01-11] MEDS: INSULIN NPH Isophane (HUMAN) 1unit/0.01ml Susp(100units/ml) SC SCH ×2 (06:18→17:49)
[2018-01-11] MEDS: HYDROcodone-ACET 10/325MG TAB PO PRN ×2 (06:18→15:02)
[2018-01-11 06:44] LABS: Basophils # (auto) 0.1 uL; Basophils % (auto) 0.7 % (0.0-2.0); Eosinophils # (auto) 0.3 uL; Eosinophils % (auto) 4.2 % (0.0-7.0); Hematocrit 40.8 % (41.0-53.0); Hemoglobin 13.7 g/dL (13.5-17.5); Lymphocytes # (auto) 3.1 uL; Lymphocytes % (auto) 38.9 % (10.0-50.0); Mean Corpuscular Hemoglobin 30.7 pg (28.0-32.0); Mean Corpuscular Hgb Conc. 33.7 g/dL (32.0-36.0); Mean Corpuscular Volume 91.1 fL (80.0-100.0); Monocytes # (auto) 0.7 uL; Monocytes % (auto) 8.5 % (0.0-12.0); Neutrophils # (auto) 3.8 uL; Neutrophils % (auto) 47.7 % (37.0-80.0); Platelet Count (auto) 211 10^3/uL (140-450); Red Blood Cells 4.47 10^6/uL (4.5-5.90); Red Cell Distribution Width 14.6 % (11.8-14.3); White Blood Cell 8.1 10^3/uL (4.4-10.8)
[2018-01-11] MEDS: metFORMIN HYDROCHLORIDE 850 MG TAB PO SCH ×2 (08:24→17:47)
[2018-01-11 09:00] VITALS: BP 143/81
[2018-01-11] MEDS: LISINOPRIL 5 MG TAB PO SCH (11:11)
[2018-01-11] MEDS: ZINC SULFATE 220mg CAP or TAB PO SCH (11:11)
[2018-01-11] MEDS: FAMOTIDINE 20 MG TAB PO SCH ×2 (11:11→21:45)
[2018-01-11] MEDS: ASCORBIC ACID 500 MG TAB PO SCH (11:12)
[2018-01-11] MEDS: ENOXAPARIN SOD 40 MG/0.4 ML SYRINGE SC SCH (11:12)
[2018-01-11 13:00] VITALS: BP 130/76
[2018-01-11] MEDS: TIMOLOL MALEATE 0.25 % OPTH SOL 5ML EACHEYE SCH ×2 (15:27→21:44)
[2018-01-11 17:02] VITALS: BP 124/76
[2018-01-11] MEDS: LATANOPROST 0.005 % OPTH(EYE) SOL 2.5ML EACHEYE SCH (21:44)
[2018-01-11 22:00] VITALS: BP 128/76
[2018-01-11] MEDS: ACETAMINOPHEN 325 MG TAB PO PRN (22:58)
[2018-01-12 05:00] VITALS: BP 117/75
[2018-01-12] MEDS: LEVOTHYROXINE SODIUM 100 MCG TAB PO SCH (06:16)
[2018-01-12] MEDS: ceFAZolin 1GM/50ML 50 ML IV SCH ×3 (06:16→22:03)
[2018-01-12] MEDS: ACCU-CHEK COMFORT CURVE STRIP VI SCH ×4 (06:17→22:09)
[2018-01-12] MEDS: InsuLIN REG 1unit/0.01ml Soln (100units/ml) SC SCH ×4 (06:30→22:17)
[2018-01-12] MEDS: ACETAMINOPHEN 325 MG TAB PO PRN ×2 (06:31→07:29)
[2018-01-12] MEDS: INSULIN NPH Isophane (HUMAN) 1unit/0.01ml Susp(100units/ml) SC SCH ×2 (06:31→17:36)
[2018-01-12] MEDS: metFORMIN HYDROCHLORIDE 850 MG TAB PO SCH ×2 (08:06→17:35)
[2018-01-12 09:00] VITALS: BP 135/77
[2018-01-12] MEDS: LISINOPRIL 5 MG TAB PO SCH (10:52)
[2018-01-12] MEDS: ASCORBIC ACID 500 MG TAB PO SCH (10:53)
[2018-01-12] MEDS: ENOXAPARIN SOD 40 MG/0.4 ML SYRINGE SC SCH (10:53)
[2018-01-12] MEDS: ZINC SULFATE 220mg CAP or TAB PO SCH (10:53)
[2018-01-12] MEDS: FAMOTIDINE 20 MG TAB PO SCH ×2 (10:53→22:04)
[2018-01-12] MEDS: TIMOLOL MALEATE 0.25 % OPTH SOL 5ML EACHEYE SCH ×2 (10:54→22:03)
[2018-01-12 13:00] VITALS: BP 130/79
[2018-01-12 17:00] VITALS: BP 135/75
[2018-01-12] MEDS: HYDROcodone-ACET 7.5/325MG TAB PO PRN ×2 (17:02→22:04)
[2018-01-12 21:53] VITALS: BP 114/71
[2018-01-12] MEDS: LATANOPROST 0.005 % OPTH(EYE) SOL 2.5ML EACHEYE SCH (22:00)
[2018-01-13 05:07] VITALS: BP 117/69
[2018-01-13] MEDS: ceFAZolin 1GM/50ML 50 ML IV SCH ×3 (05:45→22:02)
[2018-01-13] MEDS: LEVOTHYROXINE SODIUM 100 MCG TAB PO SCH (05:52)
[2018-01-13] MEDS: InsuLIN REG 1unit/0.01ml Soln (100units/ml) SC SCH ×4 (06:40→22:00)
[2018-01-13] MEDS: ACCU-CHEK COMFORT CURVE STRIP VI SCH ×4 (06:40→22:08)
[2018-01-13] MEDS: HYDROcodone-ACET 7.5/325MG TAB PO PRN ×4 (06:41→22:03)
[2018-01-13] MEDS: INSULIN NPH Isophane (HUMAN) 1unit/0.01ml Susp(100units/ml) SC SCH ×2 (06:48→17:34)
[2018-01-13] MEDS: metFORMIN HYDROCHLORIDE 850 MG TAB PO SCH ×2 (08:00→17:33)
[2018-01-13 09:00] VITALS: BP 130/79
[2018-01-13] MEDS: ZINC SULFATE 220mg CAP or TAB PO SCH (10:19)
[2018-01-13] MEDS: ENOXAPARIN SOD 40 MG/0.4 ML SYRINGE SC SCH (10:19)
[2018-01-13] MEDS: ASCORBIC ACID 500 MG TAB PO SCH (10:19)
[2018-01-13] MEDS: FAMOTIDINE 20 MG TAB PO SCH ×2 (10:19→22:02)
[2018-01-13] MEDS: LISINOPRIL 5 MG TAB PO SCH (10:19)
[2018-01-13] MEDS: TIMOLOL MALEATE 0.25 % OPTH SOL 5ML EACHEYE SCH ×2 (10:20→22:02)
[2018-01-13 13:00] VITALS: BP 146/77
[2018-01-13 17:00] VITALS: BP 101/53
[2018-01-13] MEDS: LATANOPROST 0.005 % OPTH(EYE) SOL 2.5ML EACHEYE SCH (22:02)
[2018-01-14 05:29] VITALS: BP_SYST 117; BP_SYST 118; BP_DIAS 72; BP_DIAS 82
[2018-01-14] MEDS: ceFAZolin 1GM/50ML 50 ML IV SCH ×3 (05:33→20:47)
[2018-01-14] MEDS: LEVOTHYROXINE SODIUM 100 MCG TAB PO SCH (05:33)
[2018-01-14] MEDS: InsuLIN REG 1unit/0.01ml Soln (100units/ml) SC SCH ×4 (06:46→20:58)
[2018-01-14] MEDS: ACCU-CHEK COMFORT CURVE STRIP VI SCH ×4 (06:46→21:00)
[2018-01-14] MEDS: INSULIN NPH Isophane (HUMAN) 1unit/0.01ml Susp(100units/ml) SC SCH ×2 (06:46→18:13)
[2018-01-14] MEDS: HYDROcodone-ACET 7.5/325MG TAB PO PRN ×2 (06:47→17:02)
[2018-01-14 09:00] VITALS: BP 124/72
[2018-01-14] MEDS: ASCORBIC ACID 500 MG TAB PO SCH (09:13)
[2018-01-14] MEDS: FAMOTIDINE 20 MG TAB PO SCH ×2 (09:13→20:50)
[2018-01-14] MEDS: LISINOPRIL 5 MG TAB PO SCH (09:14)
[2018-01-14] MEDS: ZINC SULFATE 220mg CAP or TAB PO SCH (09:14)
[2018-01-14] MEDS: metFORMIN HYDROCHLORIDE 850 MG TAB PO SCH ×2 (09:15→18:12)
[2018-01-14] MEDS: ENOXAPARIN SOD 40 MG/0.4 ML SYRINGE SC SCH (09:15)
[2018-01-14] MEDS: TIMOLOL MALEATE 0.25 % OPTH SOL 5ML EACHEYE SCH ×2 (10:00→21:01)
[2018-01-14 12:00] VITALS: BP 129/75
[2018-01-14 16:39] VITALS: BP 136/75
[2018-01-14] MEDS: LATANOPROST 0.005 % OPTH(EYE) SOL 2.5ML EACHEYE SCH (20:48)
[2018-01-14 22:00] VITALS: BP 116/70
[2018-01-15 05:00] VITALS: BP 128/72
[2018-01-15] MEDS: ceFAZolin 1GM/50ML 50 ML IV SCH ×3 (05:07→22:09)
[2018-01-15] MEDS: LEVOTHYROXINE SODIUM 100 MCG TAB PO SCH (05:08)
[2018-01-15] MEDS: ACCU-CHEK COMFORT CURVE STRIP VI SCH ×4 (05:09→22:20)
[2018-01-15] MEDS: InsuLIN REG 1unit/0.01ml Soln (100units/ml) SC SCH ×4 (05:12→22:20)
[2018-01-15] MEDS: INSULIN NPH Isophane (HUMAN) 1unit/0.01ml Susp(100units/ml) SC SCH ×2 (05:13→18:26)
[2018-01-15] MEDS: HYDROcodone-ACET 7.5/325MG TAB PO PRN ×4 (05:16→22:10)
[2018-01-15 09:00] VITALS: BP 121/72
[2018-01-15] MEDS: metFORMIN HYDROCHLORIDE 850 MG TAB PO SCH ×2 (09:10→18:28)
[2018-01-15] MEDS: TIMOLOL MALEATE 0.25 % OPTH SOL 5ML EACHEYE SCH ×2 (10:00→22:09)
[2018-01-15] MEDS: ASCORBIC ACID 500 MG TAB PO SCH (10:37)
[2018-01-15] MEDS: FAMOTIDINE 20 MG TAB PO SCH ×2 (10:38→22:09)
[2018-01-15] MEDS: ZINC SULFATE 220mg CAP or TAB PO SCH (10:38)
[2018-01-15] MEDS: ENOXAPARIN SOD 40 MG/0.4 ML SYRINGE SC SCH (10:38)
[2018-01-15] MEDS: LISINOPRIL 5 MG TAB PO SCH (10:38)
[2018-01-15 14:00] VITALS: BP 123/73
[2018-01-15 17:00] VITALS: BP 112/64
[2018-01-15 22:00] VITALS: BP 125/73
[2018-01-15] MEDS: LATANOPROST 0.005 % OPTH(EYE) SOL 2.5ML EACHEYE SCH (22:09)
[2018-01-15] MEDS: ACETAMINOPHEN 325 MG TAB PO PRN (22:13)
[2018-01-16 04:45] VITALS: BP 108/66
[2018-01-16] MEDS: LEVOTHYROXINE SODIUM 100 MCG TAB PO SCH (05:30)
[2018-01-16] MEDS: ceFAZolin 1GM/50ML 50 ML IV SCH ×3 (05:30→21:51)
[2018-01-16] MEDS: INSULIN NPH Isophane (HUMAN) 1unit/0.01ml Susp(100units/ml) SC SCH ×2 (06:30→18:25)
[2018-01-16] MEDS: InsuLIN REG 1unit/0.01ml Soln (100units/ml) SC SCH ×4 (06:30→21:55)
[2018-01-16] MEDS: ACCU-CHEK COMFORT CURVE STRIP VI SCH ×4 (06:31→21:55)
[2018-01-16 07:30] VITALS: BP 130/76
[2018-01-16] MEDS: HYDROcodone-ACET 7.5/325MG TAB PO PRN ×3 (08:16→21:53)
[2018-01-16] MEDS: metFORMIN HYDROCHLORIDE 850 MG TAB PO SCH ×2 (08:19→18:25)
[2018-01-16 09:00] VITALS: BP 130/76
[2018-01-16] MEDS: TIMOLOL MALEATE 0.25 % OPTH SOL 5ML EACHEYE SCH ×2 (10:34→21:53)
[2018-01-16] MEDS: ZINC SULFATE 220mg CAP or TAB PO SCH (10:34)
[2018-01-16] MEDS: FAMOTIDINE 20 MG TAB PO SCH ×2 (10:36→21:52)
[2018-01-16] MEDS: LISINOPRIL 5 MG TAB PO SCH (10:36)
[2018-01-16] MEDS: ASCORBIC ACID 500 MG TAB PO SCH (10:36)
[2018-01-16] MEDS: ENOXAPARIN SOD 40 MG/0.4 ML SYRINGE SC SCH (10:37)
[2018-01-16 13:00] VITALS: BP 126/76
[2018-01-16 17:00] VITALS: BP 153/82
[2018-01-16] MEDS: ACETAMINOPHEN 325 MG TAB PO PRN (21:52)
[2018-01-16] MEDS: LATANOPROST 0.005 % OPTH(EYE) SOL 2.5ML EACHEYE SCH (21:53)
[2018-01-16 22:00] VITALS: BP 131/80
[2018-01-17 05:00] VITALS: BP 100/61
[2018-01-17] MEDS: ceFAZolin 1GM/50ML 50 ML IV SCH ×3 (05:19→20:59)
[2018-01-17] MEDS: LEVOTHYROXINE SODIUM 100 MCG TAB PO SCH (05:19)
[2018-01-17] MEDS: ACCU-CHEK COMFORT CURVE STRIP VI SCH ×4 (05:19→21:04)
[2018-01-17] MEDS: ACETAMINOPHEN 325 MG TAB PO PRN ×2 (05:28→20:58)
[2018-01-17] MEDS: HYDROcodone-ACET 7.5/325MG TAB PO PRN ×3 (05:28→20:58)
[2018-01-17] MEDS: InsuLIN REG 1unit/0.01ml Soln (100units/ml) SC SCH ×4 (05:30→21:05)
[2018-01-17] MEDS: INSULIN NPH Isophane (HUMAN) 1unit/0.01ml Susp(100units/ml) SC SCH ×2 (05:30→17:06)
[2018-01-17 06:54] LABS: Basophils # (auto) 0.1 uL; Basophils % (auto) 0.9 % (0.0-2.0); Eosinophils # (auto) 0.3 uL; Eosinophils % (auto) 3.6 % (0.0-7.0); Hemoglobin 13.7 g/dL (13.5-17.5); Lymphocytes # (auto) 3.8 uL; Lymphocytes % (auto) 42.5 % (10.0-50.0); Mean Corpuscular Hemoglobin 30.5 pg (28.0-32.0); Mean Corpuscular Hgb Conc. 33.4 g/dL (32.0-36.0); Mean Corpuscular Volume 91.6 fL (80.0-100.0); Monocytes # (auto) 0.7 uL; Monocytes % (auto) 7.8 % (0.0-12.0); Neutrophils % (auto) 45.2 % (37.0-80.0); Nucleated Red Blood Cells % 0.1 %; Platelet Count (auto) 239 10^3/uL (140-450); Red Blood Cells 4.47 10^6/uL (4.5-5.90); Red Cell Distribution Width 14.6 % (11.8-14.3)
[2018-01-17 07:10] LABS: Calcium 8.4 mg/dL (8.5-10.1); Potassium 4.5 mmol/L (3.5-5.1)
[2018-01-17 07:13] LABS: BUN/Creatinine Ratio 16.8
[2018-01-17 07:16] LABS: Bilirubin, Total 0.2 mg/dL (0.2-1.0); Total Protein 7.4 g/dL (6.4-8.2)
[2018-01-17 09:00] VITALS: BP 134/81
[2018-01-17] MEDS: ENOXAPARIN SOD 40 MG/0.4 ML SYRINGE SC SCH (09:44)
[2018-01-17] MEDS: ZINC SULFATE 220mg CAP or TAB PO SCH (09:45)
[2018-01-17] MEDS: metFORMIN HYDROCHLORIDE 850 MG TAB PO SCH ×2 (09:45→17:07)
[2018-01-17] MEDS: LISINOPRIL 5 MG TAB PO SCH (09:46)
[2018-01-17] MEDS: FAMOTIDINE 20 MG TAB PO SCH ×2 (09:46→20:57)
[2018-01-17] MEDS: TIMOLOL MALEATE 0.25 % OPTH SOL 5ML EACHEYE SCH ×2 (09:46→20:57)
[2018-01-17] MEDS: ASCORBIC ACID 500 MG TAB PO SCH (09:46)
[2018-01-17 13:00] VITALS: BP 119/95
[2018-01-17 18:08] VITALS: BP 129/73
[2018-01-17] MEDS: LATANOPROST 0.005 % OPTH(EYE) SOL 2.5ML EACHEYE SCH (20:57)
[2018-01-17 21:49] VITALS: BP 123/66
[2018-01-18 04:37] VITALS: BP 118/78
[2018-01-18] MEDS: ceFAZolin 1GM/50ML 50 ML IV SCH ×3 (05:32→22:04)
[2018-01-18] MEDS: ACETAMINOPHEN 325 MG TAB PO PRN ×2 (05:33→22:06)
[2018-01-18] MEDS: LEVOTHYROXINE SODIUM 100 MCG TAB PO SCH (05:33)
[2018-01-18] MEDS: HYDROcodone-ACET 7.5/325MG TAB PO PRN ×4 (05:34→22:06)
[2018-01-18] MEDS: ACCU-CHEK COMFORT CURVE STRIP VI SCH ×4 (05:36→22:07)
[2018-01-18] MEDS: InsuLIN REG 1unit/0.01ml Soln (100units/ml) SC SCH ×4 (05:41→22:00)
[2018-01-18] MEDS: INSULIN NPH Isophane (HUMAN) 1unit/0.01ml Susp(100units/ml) SC SCH ×2 (06:11→17:53)
[2018-01-18 09:11] VITALS: BP 152/82
[2018-01-18] MEDS: FAMOTIDINE 20 MG TAB PO SCH ×2 (10:17→22:06)
[2018-01-18] MEDS: ASCORBIC ACID 500 MG TAB PO SCH (10:17)
[2018-01-18] MEDS: metFORMIN HYDROCHLORIDE 850 MG TAB PO SCH ×2 (10:18→17:52)
[2018-01-18] MEDS: LISINOPRIL 5 MG TAB PO SCH (10:18)
[2018-01-18] MEDS: ZINC SULFATE 220mg CAP or TAB PO SCH (10:18)
[2018-01-18] MEDS: TIMOLOL MALEATE 0.25 % OPTH SOL 5ML EACHEYE SCH ×2 (10:19→22:05)
[2018-01-18] MEDS: ENOXAPARIN SOD 40 MG/0.4 ML SYRINGE SC SCH (10:19)
[2018-01-18 12:19] VITALS: BP 125/78
[2018-01-18 16:40] VITALS: BP 126/71
[2018-01-18 22:00] VITALS: BP 119/76
[2018-01-18] MEDS: LATANOPROST 0.005 % OPTH(EYE) SOL 2.5ML EACHEYE SCH (22:05)
[2018-01-19 05:50] VITALS: BP 112/66
[2018-01-19] MEDS: HYDROcodone-ACET 7.5/325MG TAB PO PRN ×3 (05:59→17:27)
[2018-01-19] MEDS: LEVOTHYROXINE SODIUM 100 MCG TAB PO SCH (06:00)
[2018-01-19] MEDS: ceFAZolin 1GM/50ML 50 ML IV SCH ×3 (06:00→22:02)
[2018-01-19] MEDS: ACCU-CHEK COMFORT CURVE STRIP VI SCH ×4 (06:01→22:02)
[2018-01-19] MEDS: ACETAMINOPHEN 325 MG TAB PO PRN (06:01)
[2018-01-19] MEDS: InsuLIN REG 1unit/0.01ml Soln (100units/ml) SC SCH ×4 (06:12→22:07)
[2018-01-19] MEDS: INSULIN NPH Isophane (HUMAN) 1unit/0.01ml Susp(100units/ml) SC SCH ×2 (06:12→18:09)
[2018-01-19 08:39] VITALS: BP 128/86
[2018-01-19] MEDS: metFORMIN HYDROCHLORIDE 850 MG TAB PO SCH ×2 (08:51→18:09)
[2018-01-19] MEDS: FAMOTIDINE 20 MG TAB PO SCH ×2 (10:29→22:01)
[2018-01-19] MEDS: ASCORBIC ACID 500 MG TAB PO SCH (10:29)
[2018-01-19] MEDS: ZINC SULFATE 220mg CAP or TAB PO SCH (10:29)
[2018-01-19] MEDS: ENOXAPARIN SOD 40 MG/0.4 ML SYRINGE SC SCH (10:29)
[2018-01-19] MEDS: LISINOPRIL 5 MG TAB PO SCH (10:29)
[2018-01-19] MEDS: TIMOLOL MALEATE 0.25 % OPTH SOL 5ML EACHEYE SCH ×2 (10:30→22:02)
[2018-01-19 12:30] VITALS: BP 148/56
[2018-01-19 16:37] VITALS: BP 117/70
[2018-01-19 22:00] VITALS: BP 121/71
[2018-01-19] MEDS: LATANOPROST 0.005 % OPTH(EYE) SOL 2.5ML EACHEYE SCH (22:00)
[2018-01-20 05:00] VITALS: BP 120/73
[2018-01-20] MEDS: ceFAZolin 1GM/50ML 50 ML IV SCH ×3 (06:44→21:39)
[2018-01-20] MEDS: LEVOTHYROXINE SODIUM 100 MCG TAB PO SCH (06:44)
[2018-01-20] MEDS: ACCU-CHEK COMFORT CURVE STRIP VI SCH ×4 (06:44→21:40)
[2018-01-20] MEDS: HYDROcodone-ACET 7.5/325MG TAB PO PRN ×2 (06:51→18:19)
[2018-01-20] MEDS: InsuLIN REG 1unit/0.01ml Soln (100units/ml) SC SCH ×4 (06:52→21:45)
[2018-01-20] MEDS: INSULIN NPH Isophane (HUMAN) 1unit/0.01ml Susp(100units/ml) SC SCH ×2 (06:52→18:09)
[2018-01-20] MEDS: metFORMIN HYDROCHLORIDE 850 MG TAB PO SCH ×2 (07:56→18:09)
[2018-01-20 09:00] VITALS: BP 132/77
[2018-01-20] MEDS: ASCORBIC ACID 500 MG TAB PO SCH (10:49)
[2018-01-20] MEDS: FAMOTIDINE 20 MG TAB PO SCH ×2 (10:49→21:40)
[2018-01-20] MEDS: TIMOLOL MALEATE 0.25 % OPTH SOL 5ML EACHEYE SCH ×2 (10:49→21:39)
[2018-01-20] MEDS: ZINC SULFATE 220mg CAP or TAB PO SCH (10:49)
[2018-01-20] MEDS: LISINOPRIL 5 MG TAB PO SCH (10:50)
[2018-01-20 13:00] VITALS: BP 119/71
[2018-01-20 17:00] VITALS: BP 114/70
[2018-01-20] MEDS: LATANOPROST 0.005 % OPTH(EYE) SOL 2.5ML EACHEYE SCH (21:40)
[2018-01-20 22:00] VITALS: BP 107/63
[2018-01-21] MEDS: HYDROcodone-ACET 7.5/325MG TAB PO PRN ×3 (00:12→16:15)
[2018-01-21 05:00] VITALS: BP 128/72
[2018-01-21 06:13] LABS: Basophils # (auto) 0.1 uL; Basophils % (auto) 0.8 % (0.0-2.0); Eosinophils # (auto) 0.3 uL; Eosinophils % (auto) 2.8 % (0.0-7.0); Hematocrit 41.3 % (41.0-53.0); Lymphocytes # (auto) 3.3 uL; Lymphocytes % (auto) 36.3 % (10.0-50.0); Mean Corpuscular Hemoglobin 30.8 pg (28.0-32.0); Mean Corpuscular Hgb Conc. 33.9 g/dL (32.0-36.0); Mean Corpuscular Volume 90.8 fL (80.0-100.0); Monocytes # (auto) 0.7 uL; Monocytes % (auto) 7.7 % (0.0-12.0); Neutrophils # (auto) 4.8 uL; Neutrophils % (auto) 52.4 % (37.0-80.0); Nucleated Red Blood Cells % 0.2 %; Platelet Count (auto) 242 10^3/uL (140-450); Red Blood Cells 4.55 10^6/uL (4.5-5.90); Red Cell Distribution Width 14.5 % (11.8-14.3); White Blood Cell 9.1 10^3/uL (4.4-10.8)
[2018-01-21] MEDS: ceFAZolin 1GM/50ML 50 ML IV SCH ×3 (06:21→21:58)
[2018-01-21] MEDS: LEVOTHYROXINE SODIUM 100 MCG TAB PO SCH (06:21)
[2018-01-21] MEDS: ACCU-CHEK COMFORT CURVE STRIP VI SCH ×4 (06:22→21:59)
[2018-01-21] MEDS: InsuLIN REG 1unit/0.01ml Soln (100units/ml) SC SCH ×4 (06:33→22:14)
[2018-01-21] MEDS: INSULIN NPH Isophane (HUMAN) 1unit/0.01ml Susp(100units/ml) SC SCH ×2 (06:33→18:30)
[2018-01-21 06:45] LABS: BUN/Creatinine Ratio 15.9; Calcium 8.9 mg/dL (8.5-10.1); Potassium 4.4 mmol/L (3.5-5.1)
[2018-01-21] MEDS: metFORMIN HYDROCHLORIDE 850 MG TAB PO SCH ×2 (08:02→18:30)
[2018-01-21 09:15] VITALS: BP 137/75
[2018-01-21] MEDS: TIMOLOL MALEATE 0.25 % OPTH SOL 5ML EACHEYE SCH ×2 (09:40→21:59)
[2018-01-21] MEDS: ZINC SULFATE 220mg CAP or TAB PO SCH (09:40)
[2018-01-21] MEDS: FAMOTIDINE 20 MG TAB PO SCH ×2 (09:40→21:58)
[2018-01-21] MEDS: LISINOPRIL 5 MG TAB PO SCH (09:40)
[2018-01-21] MEDS: ASCORBIC ACID 500 MG TAB PO SCH (09:40)
[2018-01-21 13:00] VITALS: BP 128/76
[2018-01-21 17:12] VITALS: BP 127/75
[2018-01-21] MEDS: LATANOPROST 0.005 % OPTH(EYE) SOL 2.5ML EACHEYE SCH (21:59)
[2018-01-21 22:00] VITALS: BP 110/68
[2018-01-22 05:00] VITALS: BP 107/59
[2018-01-22] MEDS: ACCU-CHEK COMFORT CURVE STRIP VI SCH ×3 (06:47→17:58)
[2018-01-22] MEDS: ceFAZolin 1GM/50ML 50 ML IV SCH ×3 (06:47→20:59)
[2018-01-22] MEDS: LEVOTHYROXINE SODIUM 100 MCG TAB PO SCH (06:47)
[2018-01-22] MEDS: INSULIN NPH Isophane (HUMAN) 1unit/0.01ml Susp(100units/ml) SC SCH ×2 (06:48→18:02)
[2018-01-22] MEDS: InsuLIN REG 1unit/0.01ml Soln (100units/ml) SC SCH ×3 (06:48→17:59)
[2018-01-22] MEDS: HYDROcodone-ACET 7.5/325MG TAB PO PRN ×4 (07:08→20:59)
[2018-01-22] MEDS: metFORMIN HYDROCHLORIDE 850 MG TAB PO SCH ×2 (08:22→18:02)
[2018-01-22 08:50] VITALS: BP 148/85
[2018-01-22] MEDS: ZINC SULFATE 220mg CAP or TAB PO SCH (11:25)
[2018-01-22] MEDS: ASCORBIC ACID 500 MG TAB PO SCH (11:26)
[2018-01-22] MEDS: TIMOLOL MALEATE 0.25 % OPTH SOL 5ML EACHEYE SCH ×2 (11:26→21:01)
[2018-01-22] MEDS: FAMOTIDINE 20 MG TAB PO SCH ×2 (11:27→20:58)
[2018-01-22] MEDS: LISINOPRIL 5 MG TAB PO SCH (11:27)
[2018-01-22 13:00] VITALS: BP_SYST 127; BP_SYST 145; BP_DIAS 72; BP_DIAS 91
[2018-01-22 17:00] VITALS: BP 110/71
[2018-01-22 22:00] VITALS: BP 124/76
[2018-01-23] MEDS: LATANOPROST 0.005 % OPTH(EYE) SOL 2.5ML EACHEYE SCH ×2 (01:22→21:21)
[2018-01-23] MEDS: InsuLIN REG 1unit/0.01ml Soln (100units/ml) SC SCH ×4 (01:23→18:40)
[2018-01-23] MEDS: ACCU-CHEK COMFORT CURVE STRIP VI SCH ×5 (01:23→21:21)
[2018-01-23 05:22] VITALS: BP 110/67
[2018-01-23] MEDS: HYDROcodone-ACET 7.5/325MG TAB PO PRN ×2 (06:10→11:04)
[2018-01-23] MEDS: LEVOTHYROXINE SODIUM 100 MCG TAB PO SCH (06:11)
[2018-01-23] MEDS: ceFAZolin 1GM/50ML 50 ML IV SCH ×3 (07:15→21:19)
[2018-01-23] MEDS: INSULIN NPH Isophane (HUMAN) 1unit/0.01ml Susp(100units/ml) SC SCH ×2 (07:16→18:00)
[2018-01-23] MEDS: metFORMIN HYDROCHLORIDE 850 MG TAB PO SCH ×2 (08:00→18:00)
[2018-01-23 09:00] VITALS: BP 131/76
[2018-01-23] MEDS: FAMOTIDINE 20 MG TAB PO SCH ×2 (10:00→21:20)
[2018-01-23] MEDS: LISINOPRIL 5 MG TAB PO SCH (11:05)
[2018-01-23] MEDS: ZINC SULFATE 220mg CAP or TAB PO SCH (11:05)
[2018-01-23] MEDS: ASCORBIC ACID 500 MG TAB PO SCH (11:06)
[2018-01-23] MEDS: TIMOLOL MALEATE 0.25 % OPTH SOL 5ML EACHEYE SCH ×2 (11:06→21:20)
[2018-01-23 13:00] VITALS: BP 134/72
[2018-01-23 17:00] VITALS: BP 119/76
[2018-01-23 21:30] VITALS: BP 114/69
[2018-01-24] MEDS: InsuLIN REG 1unit/0.01ml Soln (100units/ml) SC SCH ×5 (00:08→21:53)
[2018-01-24 05:00] VITALS: BP 129/73
[2018-01-24] MEDS: LEVOTHYROXINE SODIUM 100 MCG TAB PO SCH (06:23)
[2018-01-24] MEDS: ceFAZolin 1GM/50ML 50 ML IV SCH ×3 (06:25→21:52)
[2018-01-24] MEDS: ACCU-CHEK COMFORT CURVE STRIP VI SCH ×4 (06:26→21:53)
[2018-01-24] MEDS: INSULIN NPH Isophane (HUMAN) 1unit/0.01ml Susp(100units/ml) SC SCH ×2 (06:59→17:34)
[2018-01-24] MEDS: metFORMIN HYDROCHLORIDE 850 MG TAB PO SCH ×2 (08:00→17:38)
[2018-01-24 09:00] VITALS: BP 112/76
[2018-01-24] MEDS: ZINC SULFATE 220mg CAP or TAB PO SCH (10:23)
[2018-01-24] MEDS: ASCORBIC ACID 500 MG TAB PO SCH (10:23)
[2018-01-24] MEDS: FAMOTIDINE 20 MG TAB PO SCH ×2 (10:23→21:53)
[2018-01-24] MEDS: LISINOPRIL 5 MG TAB PO SCH (10:23)
[2018-01-24] MEDS: ENOXAPARIN SOD 40 MG/0.4 ML SYRINGE SC SCH (10:23)
[2018-01-24] MEDS: TIMOLOL MALEATE 0.25 % OPTH SOL 5ML EACHEYE SCH ×2 (10:24→22:27)
[2018-01-24 13:00] VITALS: BP 120/70
[2018-01-24 17:00] VITALS: BP 128/74
[2018-01-24 20:00] VITALS: BP 118/69
[2018-01-24 21:35] VITALS: BP 118/69
[2018-01-24] MEDS: LATANOPROST 0.005 % OPTH(EYE) SOL 2.5ML EACHEYE SCH (22:28)
[2018-01-25] VITALS (7 sets, daily range): BP systolic 106–125; BP diastolic 60–76
[2018-01-25] MEDS: ceFAZolin 1GM/50ML 50 ML IV SCH ×3 (06:21→22:21)
[2018-01-25] MEDS: LEVOTHYROXINE SODIUM 100 MCG TAB PO SCH (06:21)
[2018-01-25] MEDS: ACCU-CHEK COMFORT CURVE STRIP VI SCH ×4 (06:35→22:21)
[2018-01-25] MEDS: InsuLIN REG 1unit/0.01ml Soln (100units/ml) SC SCH ×4 (06:35→22:22)
[2018-01-25] MEDS: INSULIN NPH Isophane (HUMAN) 1unit/0.01ml Susp(100units/ml) SC SCH ×2 (06:36→17:49)
[2018-01-25] MEDS: metFORMIN HYDROCHLORIDE 850 MG TAB PO SCH ×2 (09:12→17:40)
[2018-01-25] MEDS: ASCORBIC ACID 500 MG TAB PO SCH (09:13)
[2018-01-25] MEDS: ZINC SULFATE 220mg CAP or TAB PO SCH (09:13)
[2018-01-25] MEDS: TIMOLOL MALEATE 0.25 % OPTH SOL 5ML EACHEYE SCH ×2 (09:13→22:22)
[2018-01-25] MEDS: FAMOTIDINE 20 MG TAB PO SCH ×2 (09:13→22:21)
[2018-01-25] MEDS: ENOXAPARIN SOD 40 MG/0.4 ML SYRINGE SC SCH (09:13)
[2018-01-25] MEDS: LISINOPRIL 5 MG TAB PO SCH (09:14)
[2018-01-25] MEDS: ACETAMINOPHEN 325 MG TAB PO PRN (12:05)
[2018-01-25] MEDS: LATANOPROST 0.005 % OPTH(EYE) SOL 2.5ML EACHEYE SCH (22:22)
[2018-01-26 05:00] VITALS: BP 125/60
[2018-01-26] MEDS: LEVOTHYROXINE SODIUM 100 MCG TAB PO SCH (06:45)
[2018-01-26] MEDS: ACCU-CHEK COMFORT CURVE STRIP VI SCH ×4 (06:46→21:39)
[2018-01-26] MEDS: InsuLIN REG 1unit/0.01ml Soln (100units/ml) SC SCH ×4 (06:46→21:39)
[2018-01-26] MEDS: INSULIN NPH Isophane (HUMAN) 1unit/0.01ml Susp(100units/ml) SC SCH ×2 (06:49→17:45)
[2018-01-26] MEDS: metFORMIN HYDROCHLORIDE 850 MG TAB PO SCH ×2 (08:34→17:34)
[2018-01-26 09:00] VITALS: BP 118/67
[2018-01-26] MEDS: FAMOTIDINE 20 MG TAB PO SCH ×2 (09:50→21:38)
[2018-01-26] MEDS: ASCORBIC ACID 500 MG TAB PO SCH (09:50)
[2018-01-26] MEDS: ZINC SULFATE 220mg CAP or TAB PO SCH (09:50)
[2018-01-26] MEDS: ENOXAPARIN SOD 40 MG/0.4 ML SYRINGE SC SCH (09:51)
[2018-01-26] MEDS: LISINOPRIL 5 MG TAB PO SCH (09:51)
[2018-01-26] MEDS: TIMOLOL MALEATE 0.25 % OPTH SOL 5ML EACHEYE SCH ×2 (10:04→21:38)
[2018-01-26 13:00] VITALS: BP 135/77
[2018-01-26 16:59] VITALS: BP 103/68
[2018-01-26] MEDS: LATANOPROST 0.005 % OPTH(EYE) SOL 2.5ML EACHEYE SCH (21:38)
[2018-01-26 22:01] VITALS: BP 119/69
[2018-01-26] MEDS: HYDROcodone-ACET 5/325MG TAB PO PRN (23:08)
[2018-01-27] MEDS: INSULIN NPH Isophane (HUMAN) 1unit/0.01ml Susp(100units/ml) SC SCH ×2 (06:27→18:00)
[2018-01-27] MEDS: InsuLIN REG 1unit/0.01ml Soln (100units/ml) SC SCH ×4 (06:27→22:00)
[2018-01-27] MEDS: LEVOTHYROXINE SODIUM 100 MCG TAB PO SCH (06:27)
[2018-01-27] MEDS: ceFAZolin 1GM/50ML 50 ML IV SCH ×3 (06:27→23:02)
[2018-01-27] MEDS: ACCU-CHEK COMFORT CURVE STRIP VI SCH ×4 (06:28→23:02)
[2018-01-27] MEDS: HYDROcodone-ACET 5/325MG TAB PO PRN ×3 (06:44→23:10)
[2018-01-27] MEDS: ENOXAPARIN SOD 40 MG/0.4 ML SYRINGE SC SCH (08:45)
[2018-01-27] MEDS: metFORMIN HYDROCHLORIDE 850 MG TAB PO SCH ×2 (08:45→18:00)
[2018-01-27] MEDS: LISINOPRIL 5 MG TAB PO SCH (08:46)
[2018-01-27] MEDS: FAMOTIDINE 20 MG TAB PO SCH ×2 (08:46→23:02)
[2018-01-27] MEDS: ASCORBIC ACID 500 MG TAB PO SCH (08:46)
[2018-01-27] MEDS: ZINC SULFATE 220mg CAP or TAB PO SCH (08:46)
[2018-01-27] MEDS: TIMOLOL MALEATE 0.25 % OPTH SOL 5ML EACHEYE SCH ×2 (08:47→23:01)
[2018-01-27] MEDS: FLUCONAZOLE 100 MG TAB PO SCH (08:47)
[2018-01-27] MEDS: CLOTRIMAZOLE 1 % CREAM 15GM TOP SCH (08:49)
[2018-01-27 09:00] VITALS: BP 126/77
[2018-01-27 13:00] VITALS: BP 107/70
[2018-01-27 17:00] VITALS: BP 129/90
[2018-01-27] MEDS: LATANOPROST 0.005 % OPTH(EYE) SOL 2.5ML EACHEYE SCH (22:00)
[2018-01-27 22:22] VITALS: BP 126/69
[2018-01-28 05:00] VITALS: BP 110/70
[2018-01-28] MEDS: LEVOTHYROXINE SODIUM 100 MCG TAB PO SCH (06:25)
[2018-01-28] MEDS: ceFAZolin 1GM/50ML 50 ML IV SCH ×3 (06:25→22:00)
[2018-01-28] MEDS: ACCU-CHEK COMFORT CURVE STRIP VI SCH ×4 (06:26→22:00)
[2018-01-28] MEDS: InsuLIN REG 1unit/0.01ml Soln (100units/ml) SC SCH ×4 (06:26→22:00)
[2018-01-28] MEDS: INSULIN NPH Isophane (HUMAN) 1unit/0.01ml Susp(100units/ml) SC SCH ×2 (07:00→17:25)
[2018-01-28 08:00] VITALS: BP 138/84
[2018-01-28] MEDS: metFORMIN HYDROCHLORIDE 850 MG TAB PO SCH ×2 (08:00→17:25)
[2018-01-28 08:33] VITALS: BP 138/84
[2018-01-28 09:49] LABS: Basophils # (auto) 0.1 uL; Basophils % (auto) 0.6 % (0.0-2.0); Eosinophils # (auto) 0.2 uL; Eosinophils % (auto) 2.3 % (0.0-7.0); Hematocrit 41.2 % (41.0-53.0); Hemoglobin 13.7 g/dL (13.5-17.5); Lymphocytes # (auto) 3.3 uL; Lymphocytes % (auto) 35.6 % (10.0-50.0); Mean Corpuscular Hemoglobin 30.2 pg (28.0-32.0); Mean Corpuscular Hgb Conc. 33.2 g/dL (32.0-36.0); Mean Corpuscular Volume 90.9 fL (80.0-100.0); Monocytes # (auto) 0.6 uL; Monocytes % (auto) 6.3 % (0.0-12.0); Neutrophils # (auto) 5.1 uL; Neutrophils % (auto) 55.2 % (37.0-80.0); Nucleated Red Blood Cells % 0.1 %; Platelet Count (auto) 249 10^3/uL (140-450); Red Blood Cells 4.53 10^6/uL (4.5-5.90); Red Cell Distribution Width 14.9 % (11.8-14.3); White Blood Cell 9.2 10^3/uL (4.4-10.8)
[2018-01-28] MEDS: CLOTRIMAZOLE 1 % CREAM 15GM TOP SCH (10:00)
[2018-01-28] MEDS: ZINC SULFATE 220mg CAP or TAB PO SCH (10:00)
[2018-01-28] MEDS: ASCORBIC ACID 500 MG TAB PO SCH (10:00)
[2018-01-28] MEDS: ENOXAPARIN SOD 40 MG/0.4 ML SYRINGE SC SCH (10:00)
[2018-01-28] MEDS: FAMOTIDINE 20 MG TAB PO SCH ×2 (10:00→22:49)
[2018-01-28] MEDS: FLUCONAZOLE 100 MG TAB PO SCH (10:00)
[2018-01-28 10:02] LABS: INR 0.93 (0.9-1.15); Partial Thromboplastin Time 29.1 sec (23.78-33.04)
[2018-01-28 10:05] LABS: Calcium 8.3 mg/dL (8.5-10.1); Potassium 5.2 mmol/L (3.5-5.1)
[2018-01-28 10:09] LABS: Albumin 3.1 g/dL (3.4-5.0)
[2018-01-28 10:12] LABS: Bilirubin, Total 0.2 mg/dL (0.2-1.0); Total Protein 7.4 g/dL (6.4-8.2)
[2018-01-28] MEDS: HYDROcodone-ACET 5/325MG TAB PO PRN ×2 (10:12→23:37)
[2018-01-28] MEDS: LISINOPRIL 5 MG TAB PO SCH (10:13)
[2018-01-28] MEDS: TIMOLOL MALEATE 0.25 % OPTH SOL 5ML EACHEYE SCH ×2 (10:13→22:48)
[2018-01-28 12:13] VITALS: BP 110/69
[2018-01-28 17:05] VITALS: BP 121/69
[2018-01-28 20:00] VITALS: BP 113/65
[2018-01-28] MEDS ORDERED: MIDAZOLAM HCL 1MG/1ML-2 ML VIAL ONE (20:14)
[2018-01-28] MEDS ORDERED: PROPOFOL 10 MG/ML 20 ML IV ONE (20:15)
[2018-01-28] MEDS ORDERED: LIDOCAINE 2% (LOCAL ANESTH.) PF 5ml SDV ONE (20:15)
[2018-01-28] MEDS ORDERED: diphenhdrAMINE HCL 50 MG/1 ML VL ONE (20:27)
[2018-01-28] MEDS ORDERED: METOCLOPRAMIDE HCL 5MG/ml INJ 2ml VIAL ONE (20:27)
[2018-01-28] MEDS ORDERED: fentaNYL CITRATE 100 MCG/2 ML VL ONE (20:28)
[2018-01-28] MEDS ORDERED: ONDANSETRON HCL 4 MG/2 ML VIAL IV ONE (20:45)
[2018-01-28] MEDS ORDERED: NALOXONE HCL 0.4 MG/ML VIAL IV PRN (20:45)
[2018-01-28] MEDS ORDERED: HYDROmorphone HCL 2 MG/ML VL IV PRN ×2 (20:45)
[2018-01-28] MEDS: LATANOPROST 0.005 % OPTH(EYE) SOL 2.5ML EACHEYE SCH (22:00)
[2018-01-29] VITALS (7 sets, daily range): BP systolic 100–142; BP diastolic 58–77
[2018-01-29] MEDS: ceFAZolin 1GM/50ML 50 ML IV SCH ×3 (06:41→21:31)
[2018-01-29] MEDS: LEVOTHYROXINE SODIUM 100 MCG TAB PO SCH (06:41)
[2018-01-29] MEDS: ACCU-CHEK COMFORT CURVE STRIP VI SCH ×4 (06:42→22:55)
[2018-01-29] MEDS: InsuLIN REG 1unit/0.01ml Soln (100units/ml) SC SCH ×4 (06:42→22:55)
[2018-01-29] MEDS: INSULIN NPH Isophane (HUMAN) 1unit/0.01ml Susp(100units/ml) SC SCH ×2 (06:42→18:02)
[2018-01-29] MEDS: metFORMIN HYDROCHLORIDE 850 MG TAB PO SCH ×2 (08:02→18:02)
[2018-01-29] MEDS: HYDROcodone-ACET 5/325MG TAB PO PRN ×4 (08:02→23:38)
[2018-01-29] MEDS: CLOTRIMAZOLE 1 % CREAM 15GM TOP SCH (09:21)
[2018-01-29] MEDS: LISINOPRIL 5 MG TAB PO SCH (09:26)
[2018-01-29] MEDS: FAMOTIDINE 20 MG TAB PO SCH ×2 (10:15→21:32)
[2018-01-29] MEDS: ENOXAPARIN SOD 40 MG/0.4 ML SYRINGE SC SCH (10:15)
[2018-01-29] MEDS: ZINC SULFATE 220mg CAP or TAB PO SCH (10:15)
[2018-01-29] MEDS: ASCORBIC ACID 500 MG TAB PO SCH (10:15)
[2018-01-29] MEDS: FLUCONAZOLE 100 MG TAB PO SCH (10:16)
[2018-01-29] MEDS: TIMOLOL MALEATE 0.25 % OPTH SOL 5ML EACHEYE SCH ×2 (10:16→21:32)
[2018-01-29] MEDS: LATANOPROST 0.005 % OPTH(EYE) SOL 2.5ML EACHEYE SCH (21:32)
[2018-01-30] VITALS (7 sets, daily range): BP systolic 111–132; BP diastolic 70–82
[2018-01-30] MEDS: ceFAZolin 1GM/50ML 50 ML IV SCH ×3 (06:33→22:26)
[2018-01-30] MEDS: LEVOTHYROXINE SODIUM 100 MCG TAB PO SCH (06:33)
[2018-01-30] MEDS: HYDROcodone-ACET 5/325MG TAB PO PRN ×4 (06:40→22:28)
[2018-01-30] MEDS: ACCU-CHEK COMFORT CURVE STRIP VI SCH ×4 (07:30→22:00)
[2018-01-30] MEDS: InsuLIN REG 1unit/0.01ml Soln (100units/ml) SC SCH ×4 (07:50→22:27)
[2018-01-30] MEDS: INSULIN NPH Isophane (HUMAN) 1unit/0.01ml Susp(100units/ml) SC SCH ×2 (07:52→18:00)
[2018-01-30] MEDS: metFORMIN HYDROCHLORIDE 850 MG TAB PO SCH ×2 (08:00→19:30)
[2018-01-30] MEDS: CLOTRIMAZOLE 1 % CREAM 15GM TOP SCH (10:00)
[2018-01-30] MEDS: TIMOLOL MALEATE 0.25 % OPTH SOL 5ML EACHEYE SCH ×2 (10:00→22:26)
[2018-01-30] MEDS: ZINC SULFATE 220mg CAP or TAB PO SCH (10:45)
[2018-01-30] MEDS: ASCORBIC ACID 500 MG TAB PO SCH (10:45)
[2018-01-30] MEDS: ENOXAPARIN SOD 40 MG/0.4 ML SYRINGE SC SCH (10:45)
[2018-01-30] MEDS: FAMOTIDINE 20 MG TAB PO SCH ×2 (10:45→22:26)
[2018-01-30] MEDS: FLUCONAZOLE 100 MG TAB PO SCH (10:45)
[2018-01-30] MEDS: LATANOPROST 0.005 % OPTH(EYE) SOL 2.5ML EACHEYE SCH (22:00)
[2018-01-31 05:46] VITALS: BP 105/68
[2018-01-31] MEDS: LEVOTHYROXINE SODIUM 100 MCG TAB PO SCH (06:20)
[2018-01-31] MEDS: ceFAZolin 1GM/50ML 50 ML IV SCH ×3 (06:20→21:43)
[2018-01-31] MEDS: HYDROcodone-ACET 5/325MG TAB PO PRN ×3 (06:34→21:46)
[2018-01-31] MEDS: InsuLIN REG 1unit/0.01ml Soln (100units/ml) SC SCH ×2 (06:34→12:42)
[2018-01-31] MEDS: INSULIN NPH Isophane (HUMAN) 1unit/0.01ml Susp(100units/ml) SC SCH ×2 (06:35→18:10)
[2018-01-31] MEDS: ACCU-CHEK COMFORT CURVE STRIP VI SCH ×2 (06:36→12:31)
[2018-01-31] MEDS: metFORMIN HYDROCHLORIDE 850 MG TAB PO SCH ×3 (08:01→18:10)
[2018-01-31 09:06] VITALS: BP 105/57
[2018-01-31 09:15] VITALS: BP 131/77
[2018-01-31] MEDS: ENOXAPARIN SOD 40 MG/0.4 ML SYRINGE SC SCH (09:56)
[2018-01-31] MEDS: FLUCONAZOLE 100 MG TAB PO SCH (09:57)
[2018-01-31] MEDS: ZINC SULFATE 220mg CAP or TAB PO SCH (09:57)
[2018-01-31] MEDS: ASCORBIC ACID 500 MG TAB PO SCH (09:57)
[2018-01-31] MEDS: FAMOTIDINE 20 MG TAB PO SCH ×2 (09:57→21:43)
[2018-01-31] MEDS: TIMOLOL MALEATE 0.25 % OPTH SOL 5ML EACHEYE SCH ×2 (09:57→21:42)
[2018-01-31] MEDS: CLOTRIMAZOLE 1 % CREAM 15GM TOP SCH (10:00)
[2018-01-31 13:00] VITALS: BP 123/81
[2018-01-31 16:00] VITALS: BP 121/72
[2018-01-31] MEDS: LATANOPROST 0.005 % OPTH(EYE) SOL 2.5ML EACHEYE SCH (21:42)
[2018-01-31 21:44] VITALS: BP 141/84
[2018-02-01 05:13] VITALS: BP 121/83
[2018-02-01] MEDS: ceFAZolin 1GM/50ML 50 ML IV SCH ×3 (06:20→21:53)
[2018-02-01] MEDS: LEVOTHYROXINE SODIUM 100 MCG TAB PO SCH (06:21)
[2018-02-01] MEDS: INSULIN NPH Isophane (HUMAN) 1unit/0.01ml Susp(100units/ml) SC SCH ×2 (07:33→17:34)
[2018-02-01] MEDS: metFORMIN HYDROCHLORIDE 850 MG TAB PO SCH ×2 (08:14→17:34)
[2018-02-01 09:00] VITALS: BP 135/78
[2018-02-01] MEDS: FAMOTIDINE 20 MG TAB PO SCH ×2 (10:04→21:53)
[2018-02-01] MEDS: ENOXAPARIN SOD 40 MG/0.4 ML SYRINGE SC SCH (10:04)
[2018-02-01] MEDS: ZINC SULFATE 220mg CAP or TAB PO SCH (10:04)
[2018-02-01] MEDS: TIMOLOL MALEATE 0.25 % OPTH SOL 5ML EACHEYE SCH ×2 (10:04→21:52)
[2018-02-01] MEDS: ASCORBIC ACID 500 MG TAB PO SCH (10:04)
[2018-02-01] MEDS: HYDROcodone-ACET 5/325MG TAB PO PRN ×2 (10:04→21:53)
[2018-02-01] MEDS: FLUCONAZOLE 100 MG TAB PO SCH (10:05)
[2018-02-01] MEDS: CLOTRIMAZOLE 1 % CREAM 15GM TOP SCH (10:11)
[2018-02-01 13:00] VITALS: BP 143/85
[2018-02-01 17:00] VITALS: BP 140/87
[2018-02-01] MEDS: LATANOPROST 0.005 % OPTH(EYE) SOL 2.5ML EACHEYE SCH (21:52)
[2018-02-01 22:14] VITALS: BP 132/73
[2018-02-02 05:00] VITALS: BP 130/79
[2018-02-02] MEDS: ceFAZolin 1GM/50ML 50 ML IV SCH ×3 (06:35→22:31)
[2018-02-02] MEDS: LEVOTHYROXINE SODIUM 100 MCG TAB PO SCH (06:36)
[2018-02-02] MEDS: INSULIN NPH Isophane (HUMAN) 1unit/0.01ml Susp(100units/ml) SC SCH ×2 (07:06→18:24)
[2018-02-02] MEDS: HYDROcodone-ACET 5/325MG TAB PO PRN ×3 (07:06→22:33)
[2018-02-02] MEDS: metFORMIN HYDROCHLORIDE 850 MG TAB PO SCH ×2 (08:14→18:24)
[2018-02-02 09:00] VITALS: BP 140/74
[2018-02-02] MEDS: TIMOLOL MALEATE 0.25 % OPTH SOL 5ML EACHEYE SCH ×2 (09:22→22:31)
[2018-02-02] MEDS: ASCORBIC ACID 500 MG TAB PO SCH (09:23)
[2018-02-02] MEDS: FLUCONAZOLE 100 MG TAB PO SCH (09:23)
[2018-02-02] MEDS: ENOXAPARIN SOD 40 MG/0.4 ML SYRINGE SC SCH (09:23)
[2018-02-02] MEDS: FAMOTIDINE 20 MG TAB PO SCH ×2 (09:23→22:32)
[2018-02-02] MEDS: ZINC SULFATE 220mg CAP or TAB PO SCH (09:23)
[2018-02-02] MEDS: CLOTRIMAZOLE 1 % CREAM 15GM TOP SCH (09:24)
[2018-02-02 13:00] VITALS: BP 136/83
[2018-02-02 17:00] VITALS: BP 142/81
[2018-02-02 22:00] VITALS: BP 160/79
[2018-02-02] MEDS: LATANOPROST 0.005 % OPTH(EYE) SOL 2.5ML EACHEYE SCH (22:31)
[2018-02-03 05:07] VITALS: BP 127/79
[2018-02-03] MEDS: LEVOTHYROXINE SODIUM 100 MCG TAB PO SCH (07:03)
[2018-02-03] MEDS: ceFAZolin 1GM/50ML 50 ML IV SCH ×3 (07:03→22:09)
[2018-02-03] MEDS: INSULIN NPH Isophane (HUMAN) 1unit/0.01ml Susp(100units/ml) SC SCH ×2 (07:04→17:48)
[2018-02-03] MEDS: HYDROcodone-ACET 5/325MG TAB PO PRN ×2 (08:01→17:48)
[2018-02-03] MEDS: metFORMIN HYDROCHLORIDE 850 MG TAB PO SCH ×2 (08:01→17:48)
[2018-02-03 09:00] VITALS: BP 129/73
[2018-02-03] MEDS: ZINC SULFATE 220mg CAP or TAB PO SCH (09:51)
[2018-02-03] MEDS: TIMOLOL MALEATE 0.25 % OPTH SOL 5ML EACHEYE SCH ×2 (09:51→22:08)
[2018-02-03] MEDS: ENOXAPARIN SOD 40 MG/0.4 ML SYRINGE SC SCH (09:51)
[2018-02-03] MEDS: CLOTRIMAZOLE 1 % CREAM 15GM TOP SCH (09:51)
[2018-02-03] MEDS: ASCORBIC ACID 500 MG TAB PO SCH (09:51)
[2018-02-03] MEDS: FAMOTIDINE 20 MG TAB PO SCH ×2 (09:51→22:09)
[2018-02-03] MEDS: FLUCONAZOLE 100 MG TAB PO SCH (09:51)
[2018-02-03 12:30] VITALS: BP 132/75
[2018-02-03 17:00] VITALS: BP 132/79
[2018-02-03 21:31] VITALS: BP 145/79
[2018-02-03] MEDS: LATANOPROST 0.005 % OPTH(EYE) SOL 2.5ML EACHEYE SCH (22:09)
[2018-02-04 05:10] VITALS: BP 128/75
[2018-02-04] MEDS: ceFAZolin 1GM/50ML 50 ML IV SCH ×2 (06:15→14:00)
[2018-02-04] MEDS: LEVOTHYROXINE SODIUM 100 MCG TAB PO SCH (06:15)
[2018-02-04] MEDS: INSULIN NPH Isophane (HUMAN) 1unit/0.01ml Susp(100units/ml) SC SCH (07:07)
[2018-02-04 08:10] VITALS: BP 146/87
[2018-02-04] MEDS: metFORMIN HYDROCHLORIDE 850 MG TAB PO SCH (08:55)
[2018-02-04] MEDS: ASCORBIC ACID 500 MG TAB PO SCH (09:52)
[2018-02-04] MEDS: FAMOTIDINE 20 MG TAB PO SCH (09:52)
[2018-02-04] MEDS: HYDROcodone-ACET 5/325MG TAB PO PRN (09:52)
[2018-02-04] MEDS: TIMOLOL MALEATE 0.25 % OPTH SOL 5ML EACHEYE SCH (09:53)
[2018-02-04] MEDS: ZINC SULFATE 220mg CAP or TAB PO SCH (09:53)
[2018-02-04] MEDS: FLUCONAZOLE 100 MG TAB PO SCH (09:53)
[2018-02-04] MEDS: ENOXAPARIN SOD 40 MG/0.4 ML SYRINGE SC SCH (09:53)
[2018-02-04] MEDS: CLOTRIMAZOLE 1 % CREAM 15GM TOP SCH (09:54)
[2018-02-04 12:07] VITALS: BP 138/82
[2018-02-04] MEDS ORDERED: LEVO500T21 PO (13:39)
[2018-02-04 13:41] VITALS: BP 112/73
== END 2018-02-04 16:15 | DRG 853 ==
LOC: EEVIPCON 23:06 → ER 23:06 → EEVIPCON 23:07 → OVERFLOW 23:07 → EAST 12-08 16:30
PROVIDERS: ADMIT Specialist; ATTEND Internal Medicine
PROC: 0KBV0ZZ Excision of Right Foot Muscle, Open Approach (ICD-10-PCS; 2017-12-17)
PROC: 0KBV0ZZ Excision of Right Foot Muscle, Open Approach (ICD-10-PCS; principal; 2017-12-19)
PROC: 0KBV0ZZ Excision of Right Foot Muscle, Open Approach (ICD-10-PCS; 2017-12-23)
PROC: 0KBV0ZZ Excision of Right Foot Muscle, Open Approach (ICD-10-PCS; 2018-01-02)
PROC: 0HBKXZZ Excision of Right Lower Leg Skin, External Approach (ICD-10-PCS; 2018-01-03)
PROC: 0HRMX74 Replacement of Right Foot Skin with Autologous Tissue Substitute, Partial Thickness, External Approach (ICD-10-PCS; 2018-01-03)
PROC: 0HRMX73 Replacement of Right Foot Skin with Autologous Tissue Substitute, Full Thickness, External Approach (ICD-10-PCS; 2018-01-28)
PROC: 0KBV0ZZ Excision of Right Foot Muscle, Open Approach (ICD-10-PCS; 2018-01-28)
DX: A41.9 Sepsis, unspecified organism (principal); E11.00 Type 2 diabetes mellitus with hyperosmolarity without nonketotic hyperglycemic-hyperosmolar coma (NKHHC); N17.1 Acute kidney failure with acute cortical necrosis; L03.115 Cellulitis of right lower limb; L02.611 Cutaneous abscess of right foot; M86.8X7 Other osteomyelitis, ankle and foot; E11.69 Type 2 diabetes mellitus with other specified complication; L97.519 Non-pressure chronic ulcer of other part of right foot with unspecified severity; E11.621 Type 2 diabetes mellitus with foot ulcer; E11.65 Type 2 diabetes mellitus with hyperglycemia; B37.9 Candidiasis, unspecified; Z79.4 Long term (current) use of insulin; Z89.421 Acquired absence of other right toe(s); Z83.3 Family history of diabetes mellitus; Z89.429 Acquired absence of other toe(s), unspecified side; Z68.31 Body mass index [BMI] 31.0-31.9, adult
CPT/HCPCS: 36415; 71045; 73620; 78315; 80048; 80053; 80202; 82962; 83605; 83735; 83880; 84484; 85007; 85025; 85027; 85379; 85610; 85730; 86850; 86900; 86901; 87040; 87070; 87075; 87077; 87081; 87186; 87205; 93971; 94761; 96365; 96375; A6257; J0690; J1100; J1815; J1885; J2001; J2250; J2405; J2543; J2704; J3490